=== PATIENT | female | born 1960 | race Caucasian/White ===

== ENCOUNTER → 2017-07-14 15:12 | Outpatient (CLI) | payer MEDICARE, SELFPAY ==
--- NOTE | 2017-07-14 15:15 | MR_ITS ---
MR lumbar spine wo con, MR 3-d myelogram/MRCP HISTORY: Right sided low back pain, rt leg pain with foot numbness, symptoms x6-8 months. ITS.REASON: LOW BACK PAIN ORDERING PHYSICIAN: Promise Wood PATIENT AGE: 57 years COMPARISON: None TECHNIQUE: Standard multiplanar multiecho sequences are performed without contrast. 3-D MIP and myelographic images are also rendered and reviewed FINDINGS: There is normal alignment. The spinal cord ends at the L1-L2 level. T11-T12 and T12-L1: Mild degenerative disc disease with disc desiccation and endplate irregularity L1-L2: Degenerative disc disease with mild concentric bulging disc. L2-L3: Unremarkable. L3-L4: Mild degenerative disc disease with mild concentric bulging disc along with facet and ligamentum flavum hypertrophic change. 3 mm anterolisthesis of L3. There is borderline narrowing of the canal. There is mild bilateral lateral recess narrowing. L4-L5: Minimal concentric bulging disc with mild facet and ligamentum flavum hypertrophy with mild bilateral foraminal narrowing slightly greater on the left. L5-S1: Minimal bulging disc. IMPRESSION: 1. No disc herniation. 2. Lumbar spondylosis with multilevel degenerative disc disease with bulging disc and facet and ligamentum hypertrophy resulting in borderline canal narrowing at L3-L4 with bilateral lateral recess narrowing at that level along with mild bilateral foraminal narrowing slightly greater on the left at L4-L5. There is 3 mm anterolisthesis of L3 on L4 IMPRESSION:
== END ==
PROVIDERS: Family Provider Nurse Practitioner Family; PCP Nurse Practitioner Family; Visit Provider Nurse Practitioner Family
DX: M54.5 Low back pain (principal); M47.896 Other spondylosis, lumbar region; M51.36 Other intervertebral disc degeneration, lumbar region
CPT/HCPCS: 72148; 76376

== ENCOUNTER → 2018-02-05 10:32 | Outpatient (POV) | payer MEDICARE, SELFPAY ==
[2018-02-05 10:46] VITALS: BP 172/94; PULSE 104; RESP 18; O2SAT 98
--- NOTE | 2018-02-05 12:31 | HMH.PMCON ---
Assessment and Plan (1) Peripheral neuropathy Current visit: Yes Status: Chronic Qualifiers: Peripheral neuropathy type: polyneuropathy, unspecified Qualified Code(s): G62.9 - Polyneuropathy, unspecified Category: Medical Code(s): G62.9 - Polyneuropathy, unspecified (2) Lumbar radiculopathy Current visit: Yes Status: Chronic Category: Medical Code(s): M54.16 - Radiculopathy, lumbar region - Assessment and plan all Dx Assessment and Plan for all problems:: We will start the process to get her a psychological evaluation for neurostimulator. Patient and I discussed what is involved in the trial. Patient would like to proceed. I answered all of the patient's questions. In regards to her wound on her ankle. We will send her to wound care and see if we can have this healed. Patient and I discussed that she will will need to be healed and off antibiotics prior to any trial. Patient is currently not on any blood thinners. I will follow-up with the patient after psychological evaluation. This note was dictated using voice recognition software and may contain errors or omissions HPI - Data of Consult Consult date: 02/05/18 Requesting Physician: Kayla Singleton APRN Primary Care Provider: Promise Wood APRN Family Provider: Promise Wood APRN - Consult Narrative Reason for consult: Back and leg pain History of present illness: Ms. Bob is a 57 year old female presents today for consultation emergency neurostimulator. Patient has a diagnosis of bulging lumbar disc along with low back pain and radiculopathy into the right leg. Patient was seen by Dr. Hansen however it was determined that his weight time was quite extensive. Patient and I had a long discussion about the neurostimulator and I do believe it would be beneficial for her. Patient also has severe peripheral arterial disease in her right leg. Patient has stents placed. At this time she does have a wound on her right leg. Patient and I had a long discussion about the neurostimulator and she is interested in moving forward. Patient and I discussed the trialing and implantation process along with realistic goal setting she rates her pain today a 9 out of 10. Patient states most of her pain is in her low back and she is quite a lot of numbness in her right leg. Patient's failed epidural injections along with facet joint injections. Patient's tried and failed physical therapy she is also tried and failed Flexeril, gabapentin, Lortab, Motrin. Patient states that any activity increases her pain. CC: Kayla Singleton APRN [facility] History I have reviewed the patient's past medical history: Yes Medical History: Denies:: Cancer, Diabetes Mellitus Type 1, Diabetes Mellitus Type 2, MRSA Other Medical History: Reports: Arthritis Other Surgeries: Yes: Hysterectomy-Total Amputation: No Fractures: No - *Social History Smoking Status: Never smoker Alcohol Intake: former Occupational Status: disabled Housing: house Household Members: spouse - Psychiatric History Expresses thoughts of harming self/others: None Suicide Plan Description: No Plan *Family Hx:: Unable to obtain Review of Systems - Review of Systems ROS General: no recent weight change, no fever, no sleep disturbances Respiratory: no cough, no shortness of air, no recurring pulmonary infections Cardiovascular/Peripheral Vascular: No chest pain, No palpitations, no edema, no shortness of breath. Gastrointestinal: no incontinence, normal bowel movements reported Genitourinary: no incontinence Musculoskeletal: Pain, leg pain Psychiatric: normal mood/ affect Neurological: Weakness in right lower extremity, numbness tingling bilateral lower extremities, [denies balance issues] Meds Allergies Allergy/AdvReac Type Severity Reaction Status Date / Time No Known Allergies Allergy Verified 01/23/18 12:22 Objective Vital signs: Pulse Resp BP Pulse Ox
--- NOTE | 2018-02-05 12:35 | P.CONS_ITS ---
Assessment and Plan (1) Peripheral neuropathy Current visit: Yes Status: Chronic Qualifiers: Peripheral neuropathy type: polyneuropathy, unspecified Qualified Code(s): G62.9 - Polyneuropathy, unspecified Category: Medical Code(s): G62.9 - Polyneuropathy, unspecified (2) Lumbar radiculopathy Current visit: Yes Status: Chronic Category: Medical Code(s): M54.16 - Radiculopathy, lumbar region - Assessment and plan all Dx Assessment and Plan for all problems:: We will start the process to get her a psychological evaluation for neurostimulator. Patient and I discussed what is involved in the trial. Patient would like to proceed. I answered all of the patient's questions. In regards to her wound on her ankle. We will send her to wound care and see if we can have this healed. Patient and I discussed that she will will need to be healed and off antibiotics prior to any trial. Patient is currently not on any blood thinners. I will follow-up with the patient after psychological evaluation. This note was dictated using voice recognition software and may contain errors or omissions HPI - Data of Consult Consult date: 02/05/18 Requesting Physician: Kayla Singleton APRN Primary Care Provider: Promise Wood APRN Family Provider: Promise Wood APRN - Consult Narrative Reason for consult: Back and leg pain History of present illness: Ms. Bob is a 57 year old female presents today for consultation emergency neurostimulator. Patient has a diagnosis of bulging lumbar disc along with low back pain and radiculopathy into the right leg. Patient was seen by Dr. Hansen however it was determined that his weight time was quite extensive. Patient and I had a long discussion about the neurostimulator and I do believe it would be beneficial for her. Patient also has severe peripheral arterial disease in her right leg. Patient has stents placed. At this time she does have a wound on her right leg. Patient and I had a long discussion about the neurostimulator and she is interested in moving forward. Patient and I discussed the trialing and implantation process along with realistic goal setting she rates her pain today a 9 out of 10. Patient states most of her pain is in her low back and she is quite a lot of numbness in her right leg. Patient's failed epidural injections along with facet joint injections. Patient's tried and failed physical therapy she is also tried and failed Flexeril, gabapentin, Lortab, Motrin. Patient states that any activity increases her pain. CC: Kayla Singleton APRN [facility] History I have reviewed the patient's past medical history: Yes Medical History: Denies:: Cancer, Diabetes Mellitus Type 1, Diabetes Mellitus Type 2, MRSA Other Medical History: Reports: Arthritis Other Surgeries: Yes: Hysterectomy-Total Amputation: No Fractures: No - *Social History Smoking Status: Never smoker Alcohol Intake: former Occupational Status: disabled Housing: house Household Members: spouse - Psychiatric History Expresses thoughts of harming self/others: None Suicide Plan Description: No Plan *Family Hx:: Unable to obtain Review of Systems - Review of Systems ROS General: no recent weight change, no fever, no sleep disturbances Respiratory: no cough, no shortness of air, no recurring pulmonary infections Cardiovascular/Peripheral Vascular: No chest pain, No palpitations, no edema, no shortness of breath. Gastrointestinal: no incontinence, normal bowel movements reported Genitourinary: no incontinence
== END ==
PROVIDERS: Family Provider Nurse Practitioner Family; PCP Nurse Practitioner Family; Visit Provider Clinical Nurse Specialist Family Health
DX: M54.16 Radiculopathy, lumbar region (principal); G62.9 Polyneuropathy, unspecified
CPT/HCPCS: 99202

== ENCOUNTER → 2018-10-23 10:27 | Outpatient (CLI) | payer MEDICARE, SELFPAY ==
--- NOTE | 2018-10-23 | NVE_ITS ---
Venous Exam Indications: 729.5 Pain in limb. 729.81 Swelling of limb. IMPRESSIONS 1. No evidence of deep or superficial vein thrombosis involving the right lower extremity 2. Fluid collection seen in area of recent surgical procedure in the medial and proximal popliteal region. History: Right lower extremity pain. Swelling of the right lower extremity. Risk factors: Former tobacco use. Labs, prior tests, procedures, and surgery: Arterial bypass (August 2018, RLE). Labs, prior tests, procedures, and surgery: Arterial bypass (August 2018, RLE). Right lower extremity venous duplex evaluation. Doppler flow study including spectral analysis, color and rojas scale imaging. Location: Vascular laboratory. Patient status: Outpatient. Tables: Venous flow and imaging: + +-------+ + Location Overall Flow properties + +-------+ + Right common femoral Patent Normal phasicity; spontaneous; normal augmentation; compressible + +-------+ + Right saphenofemoral junction Patent Compressible + +-------+ + Right profunda femoral Patent Compressible + +-------+ + Right femoral Patent Normal phasicity; spontaneous; normal augmentation; compressible + +-------+ + Right greater saphenous Patent Normal phasicity; spontaneous; normal augmentation; compressible + +-------+ + Right popliteal Patent Normal phasicity; spontaneous; normal augmentation; compressible + +-------+ + Right posterior tibial Patent Compressible + +-------+ + Right peroneal Patent Compressible + +-------+ + Right gastrocnemius Patent Compressible + +-------+ + Right soleal Patent Compressible + +-------+ + (Report amended ) Electronically signed by: Andi Sanders [id number]
== END ==
PROVIDERS: PCP Nurse Practitioner Family; Visit Provider Nurse Practitioner Family
DX: M79.661 Pain in right lower leg (principal)
CPT/HCPCS: 93971

== ENCOUNTER → 2018-11-19 13:02 | Outpatient (POV) | payer MEDICARE, SELFPAY ==
[2018-11-19 13:19] VITALS: BP 178/78; PULSE 109; RESP 18; O2SAT 98; BMI 20.2
--- NOTE | 2018-11-19 13:33 | HMH.PAINSOAP ---
[facility] Pain Management SOAP Note Subjective:: Patient is a 58-year-old female who presents today for discussion in regards to her continued nerve pain in her right leg. Patient was consulted for neurostimulator and was scheduled however she did not come to her stimulator due to surgeries that she had. Today she states she is no longer interested in any kind and neuro stimulation. She is currently on gabapentin and states she is tried Lyrica in the past. I asked her what helps her pain and she states Lortab . Patient would like to be continued on her Lortab from her surgeon. I discussed with her we would not be prescribing any narcotic medications. I encouraged her to return to her primary care and be sent to potentially another medication management. I know she is seeing Dr. Hansen in the past however she was unhappy with her care at that time. Patient and I discussed that I still believe a neurostimulator would be that the best treatment for her however like a stated she is uninterested. She has had multiple injections with no relief. ROS General: no recent weight change, no fever, no sleep disturbances Respiratory: no cough, no shortness of air, no recurring pulmonary infections Cardiovascular/Peripheral Vascular: No chest pain, No palpitations, no edema, no shortness of breath. 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 She is been referred back to her primary care physician. Patient states she would like medication management we do not do that at this facility. Dr. Chacon has reviewed this note and agrees with this plan of care. This note was dictated using voice recognition software and may contain errors or omissions
--- NOTE | 2018-11-19 13:36 | P.CONS_ITS ---
[facility] Pain Management SOAP Note Subjective:: Patient is a 58-year-old female who presents today for discussion in regards to her continued nerve pain in her right leg. Patient was consulted for neurostimulator and was scheduled however she did not come to her stimulator due to surgeries that she had. Today she states she is no longer interested in any kind and neuro stimulation. She is currently on gabapentin and states she is tried Lyrica in the past. I asked her what helps her pain and she states Lortab . Patient would like to be continued on her Lortab from her surgeon. I discussed with her we would not be prescribing any narcotic medications. I encouraged her to return to her primary care and be sent to potentially another medication management. I know she is seeing Dr. Hansen in the past however she was unhappy with her care at that time. Patient and I discussed that I still believe a neurostimulator would be that the best treatment for her however like a stated she is uninterested. She has had multiple injections with no relief. ROS General: no recent weight change, no fever, no sleep disturbances Respiratory: no cough, no shortness of air, no recurring pulmonary infections Cardiovascular/Peripheral Vascular: No chest pain, No palpitations, no edema, no shortness of breath. 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 She is been referred back to her primary care physician. Patient states she would like medication management we do not do that at this facility. Dr. Chacon has reviewed this note and agrees with this plan of care. This note was dictated using voice recognition software and may contain errors or omissions
== END ==
PROVIDERS: PCP Nurse Practitioner Family; Visit Provider Clinical Nurse Specialist Family Health
DX: G62.9 Polyneuropathy, unspecified; M54.16 Radiculopathy, lumbar region
CPT/HCPCS: 99212

== ENCOUNTER → 2018-12-04 18:00 | Outpatient (CLI) | payer MEDICARE, SELFPAY ==
[2018-12-04 18:46] LABS: Basophils # 0.1 K/mm3 (0-0.2); Basophils % 0.9 % (0.1-2.0); Eosinophils # 0.1 K/mm3 (0.0-0.4); Eosinophils % 1.2 % (0.1-12.0); Hematocrit 28.2 % (37.0-47.0); Lymphocytes # 1.2 K/mm3 (0.7-4.5); Lymphocytes % 15.7 % (10-50); Mean Corpuscular HGB Conc 28.1 g/dL (31.8-35.4); Mean Corpuscular Volume 71.4 fl (81-99); Mean Platelet Volume 7.1 fl (7.4-10.4); Monocytes # 0.4 K/mm3 (0.1-1.0); Monocytes % 5.2 % (1.7-9.3); Neutrophils # 5.7 K/mm3 (1.8-7.8); Platelet Count 382 K/mm3 (142-424); Red Blood Count 3.95 M/mm3 (4.20-5.40); Red Cell Distribution Width 16.7 % (11.5-17.5); White Blood Count 7.5 K/mm3 (4.8-10.8)
[2018-12-04 19:21] LABS: Hemoglobin 7.9 g/dL (12.2-16.2)
[2018-12-04 19:26] LABS: Amphetamine/Metha Screen,Urine Negative ng/mL (<1000); Barbiturates Screen,Urine Negative ng/mL (<200); Benzodiazepines Screen,Urine Negative ng/mL (<200); Cannabinoid Screen,Urine Negative ng/mL (<50); Cocaine Screen,Urine Negative ng/mL (<300); Methadone Screen,Urine Negative ng/mL (<300); Opiate Screen,Urine Negative ng/mL (<300); Phencyclidine Screen,Urine Negative ng/mL (<25)
[2018-12-04 21:28] LABS: Alanine Aminotransferase 17 U/L (12-78); Albumin/Globulin Ratio 1.3 (1.1-1.8); Alkaline Phosphatase 100 U/L (46-116); Anion Gap 17.9 mEq/L (5-15); Aspartate Amino Transferase 11 U/L (15-37); Bilirubin,Total 0.3 mg/dL (0.2-1.0); Blood Urea Nitrogen 9 mg/dL (7-18); Calcium 9.4 mg/dL (8.5-10.1); Carbon Dioxide 24 mmol/L (21.0-32.0); Chloride 99 mmol/L (98-107); Chol/HDL Ratio 4.1 (1-3.5); Cholesterol 218 mg/dL (140-200); Creatinine,Serum 0.65 mg/dL (0.55-1.02); Estimated Glomerular Filt Rate 93 ml/min (>60); GFR (African American) 113 ML/MIN (>60); Globulin 3.1 gm/dl (1.3-3.2); Glucose 94 mg/dL (74-106); HDL Cholesterol 53 mg/dL (29-89); LDL Cholesterol 138 mg/dL (0-130); Sodium 138 mmol/L (136-145); T4 (Thyroxine) 11.7 ug/dl (4.7-13.3); Thyroid Stimulating Hormone 1.02 uIU/ml (0.358-3.740); Total Protein,Serum 7.1 gm/dL (6.4-8.2); Triglycerides 135 mg/dL (30-200); VLDL Cholesterol 27 mg/dL (0-40)
[2018-12-04 21:39] LABS: Potassium 2.9 mmoL/L (3.5-5.1)
== END ==
PROVIDERS: Visit Provider Emergency Medicine
DX: I10 Essential (primary) hypertension (principal)
CPT/HCPCS: 80053; 80061; 80305; 84436; 84443; 85025

== ENCOUNTER → 2018-12-07 13:58 | Outpatient (CLI) | payer MEDICARE, SELFPAY ==
[2018-12-07 14:39] LABS: Basophils # 0.1 K/mm3 (0-0.2); Basophils % 0.9 % (0.1-2.0); Eosinophils # 0.1 K/mm3 (0.0-0.4); Hematocrit 26.4 % (37.0-47.0); Lymphocytes # 1.7 K/mm3 (0.7-4.5); Lymphocytes % 20.3 % (10-50); Mean Corpuscular HGB Conc 28.2 g/dL (31.8-35.4); Mean Corpuscular Volume 70.8 fl (81-99); Mean Platelet Volume 7.3 fl (7.4-10.4); Monocytes # 0.4 K/mm3 (0.1-1.0); Monocytes % 4.1 % (1.7-9.3); Neutrophils # 6.2 K/mm3 (1.8-7.8); Neutrophils % 73.7 % (37.0-80.0); Platelet Count 400 K/mm3 (142-424); Red Blood Count 3.73 M/mm3 (4.20-5.40); White Blood Count 8.4 K/mm3 (4.8-10.8)
[2018-12-07 14:50] LABS: Hemoglobin 7.4 g/dL (12.2-16.2)
[2018-12-07 15:14] LABS: Anion Gap 17.7 mEq/L (5-15); Blood Urea Nitrogen 10 mg/dL (7-18); Calcium 9.6 mg/dL (8.5-10.1); Carbon Dioxide 21 mmol/L (21.0-32.0); Chloride 101 mmol/L (98-107); Creatinine,Serum 0.66 mg/dL (0.55-1.02); Estimated Glomerular Filt Rate 92 ml/min (>60); GFR (African American) 111 ML/MIN (>60); Glucose 138 mg/dL (74-106); Sodium 137 mmol/L (136-145)
[2018-12-07 15:19] LABS: Potassium 2.7 mmoL/L (3.5-5.1)
[2018-12-07 16:05] LABS: Ferritin 8 ng/mL (8-388)
[2018-12-09 06:44] LABS: Iron 11 ug/dL (27-159); UIBC 490 ug/dL (131-425)
[2018-12-09 17:13] LABS: Iron Saturation 2 % (15-55)
== END ==
PROVIDERS: Visit Provider Emergency Medicine
DX: E87.6 Hypokalemia (principal); I10 Essential (primary) hypertension; D64.9 Anemia, unspecified
CPT/HCPCS: 80048; 82728; 83540; 83550; 85025

== ENCOUNTER 2018-12-10 08:25 | Outpatient (CLI) | payer MEDICARE, SELFPAY ==
[2018-12-10] VITALS (21 sets, daily range): BP systolic 122–165; BP diastolic 54–74; PULSE 73–91; RESP 18–20; TEMP 36.6–36.9; O2SAT 96–98; BMI 20.1
[2018-12-10 08:53] LABS: Hematocrit 25.1 % (37.0-47.0)
[2018-12-10 08:57] LABS: Hemoglobin 7.1 g/dL (12.2-16.2)
--- NOTE | 2018-12-10 15:53 | PC.NURSE ---
12/10/18 1550 Pt resting. Resp easy/regular. Denies c/o. No s/s transfusion reaction noted. Awaiting 1 hour post H&H to be drawn at 1605
[2018-12-10 16:32] LABS: Hematocrit 32.1 % (37.0-47.0); Hemoglobin 9.7 g/dL (12.2-16.2)
== END 2018-12-10 16:05 | disposition home or self-care (01) ==
LOC: INF 08:25
PROVIDERS: Visit Provider Emergency Medicine
DX: D64.9 Anemia, unspecified (principal)
CPT/HCPCS: 36415; 36430; 85014; 85018; 86850; P9016

== ENCOUNTER → 2018-12-17 08:57 | Outpatient (CLI) | payer MEDICARE, SELFPAY ==
--- NOTE | 2018-12-17 08:58 | NM_ITS ---
NM bone 3 phase CLINICAL INDICATION: Right lower extremity pain, history of vascular surgery and recent injury. ITS.REASON: RSD Right LE ORDERING PHYSICIAN: José Burns MD PATIENT AGE: 58 years Comparison: 12/17/2018 DOSE: 26.8 mCi technetium MDP. Three-phase imaging performed FINDINGS: There is decrease activity to the lower right right tib-fib on the blood flow and blood pole images with some slight overall increase activity in the delayed images and lower tib-fib area. Typically complex regional pain syndrome should demonstrate increased activity on all phases however, this could represent a variant of complex regional pain syndrome. IMPRESSION: Abnormal exam showing decrease activity on the blood flow and blood pole images with slight increase activity on the delayed images likely representing a variant of complex regional pain syndrome
--- NOTE | 2018-12-17 11:04 | HMH.ITSHM ---
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 []UMECLIDINIUM RIVAROXABAN HYDROCODONE BUSPIRONE AMLODIPINE ALBUTEROL POTASSIUM MEGESTROL ACETATE ATORVASTATIN
--- NOTE | 2018-12-17 12:39 | XR_ITS ---
XR tibia fibula RT 2V CLINICAL INDICATION: Right leg pain ITS.REASON: RT LOWER LEG PAIN ORDERING PHYSICIAN: José Burns MD PATIENT AGE: 58 years Comparison: None FINDINGS: No bony or joint abnormality. Vascular clips are present proximally and there is some vascular calcification noted distally. IMPRESSION: No acute finding
== END ==
PROVIDERS: PCP Emergency Medicine; Visit Provider Emergency Medicine
DX: G90.50 Complex regional pain syndrome I, unspecified (principal)
CPT/HCPCS: 73590; 78315; A9503

== ENCOUNTER → 2018-12-18 13:26 | Outpatient (CLI) | payer MEDICARE, SELFPAY ==
[2018-12-18 14:23] LABS: Basophils # 0.1 K/mm3 (0-0.2); Basophils % 0.9 % (0.1-2.0); Eosinophils # 0.3 K/mm3 (0.0-0.4); Eosinophils % 2.8 % (0.1-12.0); Hemoglobin 11.2 g/dL (12.2-16.2); Lymphocytes # 1.5 K/mm3 (0.7-4.5); Mean Corpuscular HGB Conc 30.2 g/dL (31.8-35.4); Mean Corpuscular Hemoglobin 23.9 pg (27.0-31.2); Mean Corpuscular Volume 79.3 fl (81-99); Mean Platelet Volume 7.5 fl (7.4-10.4); Monocytes # 0.6 K/mm3 (0.1-1.0); Monocytes % 5.2 % (1.7-9.3); Neutrophils # 8.9 K/mm3 (1.8-7.8); Neutrophils % 78.2 % (37.0-80.0); Platelet Count 443 K/mm3 (142-424); Red Blood Count 4.67 M/mm3 (4.20-5.40); Red Cell Distribution Width 21.4 % (11.5-17.5); White Blood Count 11.4 K/mm3 (4.8-10.8)
[2018-12-18 14:43] LABS: Anion Gap 15.6 mEq/L (5-15); Blood Urea Nitrogen 10 mg/dL (7-18); Calcium 9.6 mg/dL (8.5-10.1); Carbon Dioxide 24 mmol/L (21.0-32.0); Chloride 104 mmol/L (98-107); Creatinine,Serum 0.59 mg/dL (0.55-1.02); Estimated Glomerular Filt Rate 104 ml/min (>60); GFR (African American) 126 ML/MIN (>60); Glucose 95 mg/dL (74-106); Potassium 3.6 mmoL/L (3.5-5.1); Sodium 140 mmol/L (136-145)
[2018-12-18 20:33] LABS: Amphetamine/Metha Screen,Urine Negative ng/mL (<1000); Barbiturates Screen,Urine Negative ng/mL (<200); Benzodiazepines Screen,Urine Negative ng/mL (<200); Cannabinoid Screen,Urine Negative ng/mL (<50); Cocaine Screen,Urine Negative ng/mL (<300); Methadone Screen,Urine Negative ng/mL (<300); Opiate Screen,Urine Positive ng/mL (<300); Phencyclidine Screen,Urine Negative ng/mL (<25)
== END ==
PROVIDERS: Visit Provider Emergency Medicine
DX: D64.9 Anemia, unspecified (principal); E78.5 Hyperlipidemia, unspecified; M54.16 Radiculopathy, lumbar region
CPT/HCPCS: 80048; 80305; 85025

== ENCOUNTER → 2019-01-10 08:37 | Outpatient (CLI) | payer MEDICARE, SELFPAY ==
--- NOTE | 2019-01-10 08:38 | MM_ITS ---
PROCEDURE: MM DIG SCREENING MAMM BI W/CAD Patient Age:58Y CLINICAL INDICATION: screening 58-year-old. Routine screening mammogram. No hormones no new complaints. No prior films available Family history: Maternal aunt breast tumor reportedly age 26 COMPARISON: No exams were available for comparison Patient reports previous mammogram many years ago but does not recall where. TECHNIQUE: Standard CC and MLO images were obtained. R2 CAD reviewed. FINDINGS: Mmoderate breast density, with fibroglandular elements central breast extending mainly towards the towards the upper outer quadrant both breast but. Minimal asymmetry. No dominant nor suspicious mass. No suspicious calcifications. No areas of significant concern. Areas of minor density on one view dissipate on the other and not of significant concern overall. CAD computer review highlights no significant areas of concern either. Bilateral follow-up 1 year recommended IMPRESSION: No areas of significant concern. Bilateral follow-up 1 year recommended and would be be emphasized encouraged to better confirm baseline BI-RAD Category: 2 Benign Finding(s) FOLLOW-UP: 1YR 1 Year Follow-up (A letter has been sent to the patient regarding results of the study.) Dictated by: Uriel Novoa MD 01/11/2019 09:03 Signed by: <Electronically signed by Uriel Novoa MD in [place]> 01/16/2019 10:11
[2019-01-10 12:06] LABS: Ferritin 12 ng/mL (8-388)
[2019-01-11 10:10] LABS: Iron 15 ug/dL (27-159); UIBC 462 ug/dL (131-425)
[2019-01-11 14:22] LABS: Iron Saturation 3 % (15-55)
== END ==
PROVIDERS: PCP Emergency Medicine; Visit Provider Emergency Medicine
DX: Z12.31 Encounter for screening mammogram for malignant neoplasm of breast (principal); D64.9 Anemia, unspecified
CPT/HCPCS: 36415; 77067; 82728; 83540; 83550

== ENCOUNTER → 2019-01-15 13:41 | Outpatient (CLI) | payer MEDICARE, SELFPAY ==
[2019-01-15 16:29] LABS: Amphetamine/Metha Screen,Urine Negative ng/mL (<1000); Barbiturates Screen,Urine Negative ng/mL (<200); Benzodiazepines Screen,Urine Negative ng/mL (<200); Cannabinoid Screen,Urine Negative ng/mL (<50); Cocaine Screen,Urine Negative ng/mL (<300); Methadone Screen,Urine Negative ng/mL (<300); Opiate Screen,Urine Positive ng/mL (<300); Phencyclidine Screen,Urine Negative ng/mL (<25)
== END ==
PROVIDERS: Visit Provider Emergency Medicine
DX: M54.16 Radiculopathy, lumbar region (principal)
CPT/HCPCS: 80305

== ENCOUNTER 2019-01-29 08:43 | Outpatient (CLI) | payer MEDICARE, SELFPAY ==
[2019-01-29 08:43] VITALS: BMI 19.3
[2019-01-29 08:56] VITALS: BP 136/60; PULSE 90; RESP 18; TEMP 36.5; O2SAT 99
[2019-01-29 08:58] LABS: Basophils % 0.4 % (0.1-2.0); Eosinophils # 0.1 K/mm3 (0.0-0.4); Eosinophils % 1.4 % (0.1-12.0); Hematocrit 27.6 % (37.0-47.0); Hemoglobin 8.4 g/dL (12.2-16.2); Lymphocytes # 1.2 K/mm3 (0.7-4.5); Lymphocytes % 12.4 % (10-50); Mean Corpuscular HGB Conc 30.4 g/dL (31.8-35.4); Mean Corpuscular Hemoglobin 22.6 pg (27.0-31.2); Mean Corpuscular Volume 74.3 fl (81-99); Mean Platelet Volume 7.8 fl (7.4-10.4); Monocytes # 0.3 K/mm3 (0.1-1.0); Monocytes % 3.2 % (1.7-9.3); Neutrophils # 8.2 K/mm3 (1.8-7.8); Neutrophils % 82.6 % (37.0-80.0); Platelet Count 430 K/mm3 (142-424); Red Blood Count 3.72 M/mm3 (4.20-5.40); White Blood Count 9.9 K/mm3 (4.8-10.8)
[2019-01-29 09:26] VITALS: BP 129/64; PULSE 89; RESP 18; O2SAT 100
[2019-01-29 09:40] VITALS: BP 131/68; PULSE 87; RESP 18; O2SAT 99
== END 2019-01-29 09:40 | disposition home or self-care (01) ==
LOC: INF 08:43
PROVIDERS: Visit Provider Internal Medicine Medical Oncology
DX: D50.0 Iron deficiency anemia secondary to blood loss (chronic) (principal); T45.4X5A Adverse effect of iron and its compounds, initial encounter
CPT/HCPCS: 85025; 96365; J1439

== ENCOUNTER 2019-02-05 08:46 | Outpatient (CLI) | payer MEDICARE, SELFPAY ==
[2019-02-05 09:14] VITALS: BP 132/60; PULSE 86; RESP 20; TEMP 36.6; O2SAT 100
[2019-02-05 09:44] VITALS: BP 130/69; PULSE 84; RESP 20; O2SAT 99
[2019-02-05 09:55] VITALS: BP 141/67; PULSE 85; RESP 20; O2SAT 99
== END 2019-02-05 09:55 | disposition home health service (06) ==
LOC: INF 08:46
PROVIDERS: Visit Provider Internal Medicine Medical Oncology
DX: D50.9 Iron deficiency anemia, unspecified (principal); T45.4X5A Adverse effect of iron and its compounds, initial encounter
CPT/HCPCS: 96365; J1439

== ENCOUNTER → 2019-02-08 07:43 | Outpatient (CLI) | payer MEDICARE, SELFPAY ==
[2019-02-08 08:15] LABS: Basophils % 0.4 % (0.1-2.0); Eosinophils # 0.2 K/mm3 (0.0-0.4); Eosinophils % 2.2 % (0.1-12.0); Hemoglobin 9.5 g/dL (12.2-16.2); Lymphocytes # 1.1 K/mm3 (0.7-4.5); Lymphocytes % 10.9 % (10-50); Mean Corpuscular HGB Conc 28.8 g/dL (31.8-35.4); Mean Corpuscular Volume 83.5 fl (81-99); Monocytes # 0.4 K/mm3 (0.1-1.0); Monocytes % 3.6 % (1.7-9.3); Neutrophils # 8.4 K/mm3 (1.8-7.8); Neutrophils % 82.9 % (37.0-80.0); Platelet Count 418 K/mm3 (142-424); Red Blood Count 3.95 M/mm3 (4.20-5.40); White Blood Count 10.2 K/mm3 (4.8-10.8)
[2019-02-08 08:29] LABS: Red Cell Distribution Width 27.4 % (11.5-17.5)
== END ==
PROVIDERS: Visit Provider Physician Assistant
DX: K92.1 Melena (principal)
CPT/HCPCS: 36415; 85025

== ENCOUNTER → 2019-02-12 12:22 | Outpatient (CLI) | payer MEDICARE, SELFPAY ==
[2019-02-12 19:49] LABS: Amphetamine/Metha Screen,Urine Negative ng/mL (<1000); Barbiturates Screen,Urine Negative ng/mL (<200); Benzodiazepines Screen,Urine Negative ng/mL (<200); Cannabinoid Screen,Urine Negative ng/mL (<50); Cocaine Screen,Urine Negative ng/mL (<300); Methadone Screen,Urine Negative ng/mL (<300); Opiate Screen,Urine Negative ng/mL (<300); Phencyclidine Screen,Urine Negative ng/mL (<25)
[2019-02-20 11:43] LABS: Opiates Negative ng/mL (Cutoff=100)
== END ==
PROVIDERS: Visit Provider Emergency Medicine
DX: M54.16 Radiculopathy, lumbar region (principal)
CPT/HCPCS: 80305; 80361; G0480

== ENCOUNTER → 2019-02-21 13:26 | Outpatient (CLI) | payer MEDICARE, SELFPAY ==
[2019-02-21 14:19] LABS: Basophils # 0.1 K/mm3 (0-0.2); Basophils % 0.6 % (0.1-2.0); Eosinophils # 0.2 K/mm3 (0.0-0.4); Eosinophils % 2.2 % (0.1-12.0); Hematocrit 37.2 % (37.0-47.0); Hemoglobin 11.2 g/dL (12.2-16.2); Lymphocytes # 1.7 K/mm3 (0.7-4.5); Lymphocytes % 15.6 % (10-50); Mean Corpuscular Hemoglobin 27.6 pg (27.0-31.2); Mean Corpuscular Volume 91.9 fl (81-99); Mean Platelet Volume 7.2 fl (7.4-10.4); Monocytes # 0.5 K/mm3 (0.1-1.0); Monocytes % 4.7 % (1.7-9.3); Neutrophils # 8.2 K/mm3 (1.8-7.8); Platelet Count 366 K/mm3 (142-424); Red Blood Count 4.04 M/mm3 (4.20-5.40); White Blood Count 10.6 K/mm3 (4.8-10.8)
[2019-02-21 14:51] LABS: Red Cell Distribution Width 26.9 % (11.5-17.5)
[2019-02-21 15:08] LABS: Ferritin 364 ng/mL (8-388)
[2019-02-22 05:08] LABS: Iron 53 ug/dL (27-159); UIBC 314 ug/dL (131-425)
[2019-02-22 06:55] LABS: Iron Saturation 14 % (15-55)
== END ==
PROVIDERS: PCP Emergency Medicine; Visit Provider Internal Medicine Medical Oncology
DX: D64.9 Anemia, unspecified (principal)
CPT/HCPCS: 36415; 82728; 83540; 83550; 85025

== ENCOUNTER → 2019-03-15 13:39 | Outpatient (CLI) | payer MEDICARE, SELFPAY ==
[2019-03-15 15:29] LABS: Amphetamine/Metha Screen,Urine Negative ng/mL (<1000); Barbiturates Screen,Urine Negative ng/mL (<200); Benzodiazepines Screen,Urine Negative ng/mL (<200); Cannabinoid Screen,Urine Negative ng/mL (<50); Cocaine Screen,Urine Negative ng/mL (<300); Methadone Screen,Urine Negative ng/mL (<300); Opiate Screen,Urine Positive ng/mL (<300); Phencyclidine Screen,Urine Negative ng/mL (<25)
== END ==
PROVIDERS: Visit Provider Emergency Medicine
DX: M54.16 Radiculopathy, lumbar region (principal)
CPT/HCPCS: 80305

== ENCOUNTER → 2019-05-13 10:54 | Outpatient (CLI) | payer MEDICARE, SELFPAY ==
[2019-05-13 15:46] LABS: INR 1.07 (0.9-1.1); Prothrombin Time 11.1 seconds (9.4-11.8)
== END ==
PROVIDERS: PCP Emergency Medicine; Visit Provider Emergency Medicine
DX: Z51.81 Encounter for therapeutic drug level monitoring (principal); Z79.01 Long term (current) use of anticoagulants
CPT/HCPCS: 85610

== ENCOUNTER 2019-05-31 08:38 | Outpatient (CLI) | payer MEDICARE, SELFPAY ==
[2019-05-31 15:00] LABS: Prothrombin Time 111.7 seconds (9.4-11.8)
[2019-05-31 15:01] LABS: INR 12.09 (0.9-1.1)
[2019-05-31 16:25] VITALS: BP 179/78; PULSE 93; RESP 20; TEMP 36.9; O2SAT 95
== END 2019-05-31 16:50 | disposition home or self-care (01) ==
LOC: LAB.DROPOF 08:41 → INF 16:07
PROVIDERS: PCP Emergency Medicine; Visit Provider Emergency Medicine
DX: Z51.81 Encounter for therapeutic drug level monitoring (principal); Z79.01 Long term (current) use of anticoagulants
CPT/HCPCS: 85610; 96372

== ENCOUNTER → 2019-06-04 11:24 | Outpatient (CLI) | payer MEDICARE, SELFPAY ==
[2019-06-04 14:21] LABS: INR 1.03 (0.9-1.1); Prothrombin Time 10.7 seconds (9.4-11.8)
== END ==
PROVIDERS: Visit Provider Emergency Medicine
DX: R79.1 Abnormal coagulation profile (principal); Z79.01 Long term (current) use of anticoagulants
CPT/HCPCS: 85610

== ENCOUNTER → 2019-06-11 11:32 | Outpatient (CLI) | payer MEDICARE, SELFPAY ==
[2019-06-11 11:48] LABS: Prothrombin Time 44.5 seconds (9.4-11.8)
== END ==
PROVIDERS: Visit Provider Emergency Medicine
DX: Z51.81 Encounter for therapeutic drug level monitoring (principal); Z79.01 Long term (current) use of anticoagulants
CPT/HCPCS: 85610

== ENCOUNTER → 2019-06-18 11:15 | Outpatient (CLI) | payer MEDICARE, SELFPAY ==
[2019-06-18 14:06] LABS: INR 3.91 (0.9-1.1); Prothrombin Time 38.1 seconds (9.4-11.8)
== END ==
PROVIDERS: Visit Provider Emergency Medicine
DX: I73.9 Peripheral vascular disease, unspecified (principal)
CPT/HCPCS: 85610

== ENCOUNTER 2019-07-01 10:47 | Observation (INO) ==
[2019-07-01 11:13] LABS: Microscopic, Urine URINE MICROSCOPIC (MICROSCOPIC)
[2019-07-01 11:15] LABS: Appearance,Urine CLOUDY (Clear); Bilirubin,Urine Negative (Negative); Blood, Urine 1+ (Negative); Color,Urine YELLOW (Yellow); Glucose,Urine (UA) Negative (Negative); Ketones,Urine Negative (Negative); Leukocyte Esterase,Urine 3+ (Negative); Protein,Urine 2+ (Negative); Specific Gravity, Urine 1.015 (1.005-1.030); Urobilinogen,Urine 0.2 EU/dl (0.2)
--- NOTE | 2019-07-01 11:21 | Emergency Department Note ---
ED Disposition Clinical Impression: Right lower quadrant abdominal pain, Atherosclerosis of abdominal aorta Abdominal pain Qualifiers: Abdominal location: right lower quadrant Qualified Code(s): R10.31 - Right lower quadrant pain Urinary tract infection Qualifiers: Urinary tract infection type: acute cystitis Hematuria presence: without hematuria Qualified Code(s): N30.00 - Acute cystitis without hematuria Disposition: Admitted as Observation Condition on Discharge: Fair Instructions: DI for Acute Abdomen Additional Instructions: Patient was admitted to the floor under Dr. Burns. Referrals: José Burns MD [Primary Care Provider] - Time of Disposition: 15:07 - Critical Care Critical Care Time: No Attestation: On 07/01/19, the high probability of a clinically significant, sudden or life threatening deterioration of the following system(s) required my full and direct attention, intervention and personal management. The time I documented below is in addition to time spent performing reported procedures but includes the following listed in this critical care notation. Medical Decision Making - [place] Inquiry Pt receiving controlled substance: No Vital Signs: 07/01/19 10:58 Temperature 98.5 F Temperature Source Oral Pulse Rate [Right Radial] 89 Respiratory Rate 18 Blood Pressure [Right Arm] 129/74 Blood Pressure Mean [Right Arm] 92 02 Sat by Pulse Oximetry 98 Oxygen Delivery Method Room Air - Lab Data Lab results reviewed: Yes: I reviewed the patient's lab results. Lab Results 07/01/19 11:00: Urine Color Yellow, Urine Appearance Cloudy, Urine pH 7.0, Ur Specific [place] 1.015, Urine Protein 2+, Urine Glucose (UA) Negative, Urine Ke tones Negative, Urine Blood 1+, Urine Nitrate Positive, Urine Bilirubin Negative, Urine Urobilinogen 0.2, Ur Leukocyte Esterase 3+ A, Urine RBC 3-5, Urine WBC 20-50, Ur Squamous Epith Cells Occasional, Urine Bacteria 3+ 07/01/19 11:05: WBC 13.1 H, RBC 4.09 L, Hgb 11.4 L, Hct 34.9 L, MCV 85.4, MCH 27.8, MCHC 32.5, RDW 16.2, Plt Count 430 H, MPV 7.8, Neut % (Auto) 88.5 H, Lymph % (Auto) 6.4 L, [place] % (Auto) 3.8, Eos % (Auto) 0.9, Baso % (Auto) 0.5, Neut # (Auto) 11.6 H, Lymph # (Auto) 0.8, [place] # (Auto) 0.5, Eos # (Auto) 0.1, Baso # (Auto) 0.1, Total Counted 100, Neutrophils % (Manual) 86 H, Lymphocytes % (Manual) 8 L, Monocytes % (Manual) 5, Eosinophils % (Manual) 1, Platelet Estimate Slight increase, Hypochromasia 1+ 07/01/19 11:05: PT 31.1 H, INR 3.16 H 07/01/19 11:05: Sodium 141, Potassium 3.5, Chloride 102, Carbon Dioxide 26, Anion Gap 16.5 H, BUN 8, Creatinine 0.70, Estimated Creat Clear 64, Estimated GFR 85, Est GFR ( Amer) 103, Glucose 113 H, Calcium 9.9, Total Bilirubin 0.2, AST 14 L, ALT 16, Alkaline Phosphatase 125 H, Total Protein 8.5 H, Albumin 3.3 L, Globulin 5.2 H, Albumin/Globulin Ratio 0.6 L, Amylase 30, Lipase 58 L 07/01/19 13:43: Lactate 1.3 Result diagrams: 07/01/19 11:05 07/01/19 11:05 Orders (Tests/Meds): ED MEDICATIONS Discontinued Medications Generic Name Dose Route Start Last Admin Trade Name Nilson PRN Reason Stop Dose Admin Sodium Chloride 1,000 mls @ 999 mls/hr 07/01/19 11:15 07/01/19 11:19 Sod Chlor 0.9% 1000ml Bag IV 07/01/19 12:15 999 mls/hr .Q1H1M DESTINY Administration Ertapenem 1 gm/ Sodium 50 mls @ 100 mls/hr 07/01/19 13:39 07/01/19 14:59 Chloride IV 07/01/19 13:40 100 mls/hr ONCE ONE Administration Protocol Sodium Chloride 1,000 mls @ 999 mls/hr 07/01/19 13:45 07/01/19 15:00 Sod Chlor 0.9% 1000ml Bag IV 07/01/19 14:45 999 mls/hr .Q1H1M DESTINY Administration Ketorolac Tromethamine 30 mg 07/01/19 14:27 07/01/19 15:00 Toradol 60mg/2ml Vial IV 07/01/19 14:28 30 mg ONCE ONE Administration Morphine Sulfate 1 mg 07/01/19 14:27 07/01/19 15:00 Morphine 2mg/Ml Syringe IV 07/01/19 14:28 1 mg ONCE ONE Administration Ondansetron HCl 4 mg 07/01/19 11:02 07/01/19 11:19 Zofran 4mg/2ml Vial IV 07/01/19 11:03 4 mg ONCE ONE Administration ORDERS Category Date Time Status CT abdomen pelvis w con Stat Cat Scan 07/01/19 11:02 Taken Blood Culture Stat Micro 07/01/19 14:24 Received Urine Culture Stat Micro 07/01/19 11:00 Received - CT Data CT Scan: Abdomen Time Received: 15:[address] Reviewed: Yes: I discussed the CT results w/the radiologist Findings Narrative: No acute intra-abdominal or pelvic finding. There is chronic atherosclerotic arterial disease. No signs of acute ischemic colitis. No signs of acute ischemia of the mesentery. No signs of acute appendicitis. Patient seems to have significant atherosclerosis. According to the radiologist if there would be any concern then it should be regarding due to the atherosclerotic disease. - Physician Consults Physician Consulted: Dr. Burns Time: 14:00 Reason -: Admission, Pt condition Comment/Response: Discussed with Dr. Burns regarding the patient and he wanted the patient to be admitted for IV antibiotics and IV hydration. He would want the patient to get the CT scan done prior to being transferred to the floor. Abdominal Pain HPI - General Chief Complaint: Abdominal Pain Stated Complaint: right side pain Time Seen by Provider: 07/01/19 11:09 Mode of Arrival: Wheelchair Source of Information: Patient Limitations: No Limitations Description of Symptoms (Recalled from ER Triage Doc. by RN): PT PRESENTS TO ED WITH C/O RIGHT LOWER QUAD ABDOMINAL PAIN AND NAUSEA X 4 DAYS. PT REPORTS HAVING SOME TROUBLE WITH HER BOWELS AND HAVING TO TAKE SOME LAXATIVES FOR RELIEF AT HOME. - History of Present Illness HPI narrative: 59-year-old female presents to the emergency department with chief complaint of having pain in the lower quadrant last 4 days. She states the pain has been getting worse every day. Pain is currently about 10 out of 10 right now. She states the pain is at times sharp and at times dull. Pain is worse with palpation of the area. No history of nausea or vomiting. It also gives history of having constipation and she has tried [id number]-[id number] medications to have bowel movements. She states she had a very few stool output which looked dark black in color. Patient states he has been having episodes of black-colored stool. She had one black-colored stool 2 days ago. She does have history of constipation. Patient has history of blood clots and takes warfarin on a daily basis. 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 The patient and the family is not sure what exactly had happened. She does not know if her appendix was removed. MD complaint: abdominal pain Onset (ago): day(s) (4) Consistency: constant, other (getting worse) Location: RLQ Severity: moderate Severity scale (1-10): 7 Quality: sharp Radiation: RLQ Migration to: no migration Relieving factors: nothing Exacerbating factors: nothing - Related Data Home Medications Medication Instructions Recorded Confirmed amitriptyline 75 mg tablet PO QHS tab 06/03/19 07/01/19 atorvastatin 40 mg tablet PO QHS tab 06/03/19 07/01/19 megestrol 400 mg/10 mL (40 mg/mL) PO DAILY ml 06/03/19 07/01/19 oral suspension metoprolol succinate 50 mg PO 06/03/19 07/01/19 tablet,extended release 24 hr potassium chloride 20 mEq meq PO DAILY tab 06/03/19 07/01/19 tablet,extended release(part/cryst) warfarin 5 mg tablet 5 mg PO .COMPLEX 06/19/19 07/01/19 warfarin 7.5 mg tablet 7.5 mg PO .COMPLEX 06/19/19 07/01/19 Previous Rx's Medication Instructions Recorded umeclidinium 62.5 mcg-vilanterol 1 inh INHALATION Q24H #60 each 03/15/19 25 mcg/actuation powdr for inhalation amlodipine 10 mg tablet 10 mg PO DAILY #90 tab 04/26/19 gabapentin 800 mg tablet 800 mg PO QID #120 tab 04/26/19 hydrocodone 7.5 mg-acetaminophen 1 tab PO QID PRN #120 tab 06/03/19 325 mg tablet albuterol sulfate 90 mcg/actuation See Rx Instructions .ROUTE 06/10/19 aerosol inhaler .COMPLEX #18 g Allergies Allergy/AdvReac Type Severity Reaction Status Date / Time No Known Allergies Allergy Verified 07/01/19 11:02 [facility] History - Hepatitis A Screen Drug use history?: No High risk sexual behaviors?: No History of sexually transmitted infection?: No Currently employed?: No Childcare worker?: No Do you have indoor plumbing?: Yes Do you have electricity?: Yes Attestation statement:: This patient has been screened for Hepatitis A risk factors. I have reviewed the patient's past medical history: Yes Medical History: Reports:: Chronic Obstructive Pulmonary Disease (COPD), Peripheral Artery Disease Denies:: Cancer, Diabetes Mellitus Type 1, Diabetes Mellitus Type 2, MRSA, Seizures Other Medical History: Reports: Arthritis. Denies: Blood Transfusion Reaction Comment: ordered colonoscopy,hx polyps Other Surgeries: Yes: Cardiac Catheterization, Cardiac Surgery, Cholecystectomy, Colonoscopy, Coronary Stent, EGD, Hysterectomy-Total, Open Heart Surgery, Other Amputation: Yes Fractures: No - Social History Smoking Status: Former smoker Tobacco Type: cigarettes # Packs/Day (cigarettes): 1 Alcohol Intake: never Substance Use Type: denies use Occupational Status: disabled Housing: house Household Members: none Family Hx:: Cancer, Heart Attack, Diabetes, Hypertension, Hyperlipidemia ROS Obtained: Yes All systems reviewed & no additional complaints Physical Exam - General General appearance: alert, in no apparent distress, other (thin. Pt looks pale and weak.) - Head Head exam: atraumatic, normocephalic, normal inspection - Eye Eye exam: Present: normal appearance, PERRL, EOMI - ENT ENT exam: Present: normal exam, normal oropharynx, mucous membranes moist, normal external ear exam - Neck Neck exam: Present: normal inspection, full ROM, trachea midline. Absent: meningismus, lymphadenopathy - Chest Chest inspection: Present: normal inspection, symmetric chest wall rise. Absent: tenderness - Respiratory Respiratory exam: Present: normal lung sounds bilaterally. Absent: respiratory distress - Cardiovascular Cardiovascular exam: Present: regular rate, normal rhythm. Absent: JVD - Abdominal Exam Abdominal exam: Present: soft, tenderness (Her on palpation of the epigastric area as well as the right flank and the right lower quadrant. The tenderness is worse at the epigastric and the right flank area. Rebound tenderness negative. Rovsing sign negative.), normal bowel sounds, tenderness at [place]'s Point. Absent: distention, guarding - Extremities Exam Extremities exam: Present: other (Left lower leg normal at baseline status. Right lower extremity is amputated above the knee.) - Back Exam Back exam: Present: normal inspection. Absent: tenderness - Neurological Exam Neurological exam: Present: alert, oriented X3, CN II-XII intact - Psychiatric Psychiatric exam: Present: normal affect, normal mood - Skin Skin exam: Present: warm, dry, intact, normal color
[2019-07-01 11:29] LABS: Basophils # 0.1 K/mm3 (0-0.2); Basophils % 0.5 % (0.1-2.0); Eosinophils # 0.1 K/mm3 (0.0-0.4); Eosinophils % 0.9 % (0.1-12.0); Hematocrit 34.9 % (37.0-47.0); Hemoglobin 11.4 g/dL (12.2-16.2); Lymphocytes # 0.8 K/mm3 (0.7-4.5); Lymphocytes % 6.4 % (10-50); Mean Corpuscular HGB Conc 32.5 g/dL (31.8-35.4); Mean Corpuscular Volume 85.4 fl (81-99); Mean Platelet Volume 7.8 fl (7.4-10.4); Monocytes # 0.5 K/mm3 (0.1-1.0); Monocytes % 3.8 % (1.7-9.3); Neutrophils # 11.6 K/mm3 (1.8-7.8); Neutrophils % 88.5 % (37.0-80.0); Platelet Count 430 K/mm3 (142-424); Red Blood Count 4.09 M/mm3 (4.20-5.40); Red Cell Distribution Width 16.2 % (11.5-17.5); White Blood Count 13.1 K/mm3 (4.8-10.8)
[2019-07-01 11:39] LABS: INR 3.16 (0.9-1.1); Prothrombin Time 31.1 seconds (9.4-11.8)
[2019-07-01 11:41] LABS: Bacteria,Urine 3+ /lpf; Squamous Epithelial Cell,Urine Occasional #/hpf (0-5); WBC,Urine 20-50 #/hpf (0-3)
[2019-07-01 11:41] LABS: Hypochromasia 1+
[2019-07-01 11:51] LABS: Eosinophils % 1 % (0-3); Lymphocytes % 8 % (10-50); Monocytes % 5 % (2-9); Neutrophils % 86 % (42-76); Total Cells Counted 100
[2019-07-01 12:03] LABS: Albumin Level 3.3 g/dL (3.4-5.0); Albumin/Globulin Ratio 0.6 (1.1-1.8); Anion Gap 16.5 mEq/L (5-15); Bilirubin,Total 0.2 mg/dL (0.2-1.0); Calcium 9.9 mg/dL (8.5-10.1); Globulin 5.2 gm/dl (1.3-3.2); Total Protein,Serum 8.5 g/dL (6.4-8.2)
--- NOTE | 2019-07-01 16:20 | Pharmacy Consult Notes ---
[facility] Pharmacy VTE Monitoring - Patient Demographics Admission date: 07/01/19 Report Date: 07/01/19 Time: 16:20 Allergies/Adverse Reactions: Patient Allergies No Known Allergies Allergy (Verified 07/01/19 11:02) Height: 1.55 m Weight: 41.73 kg Patient Problems: Current Active Problems Abdominal pain (Acute) Right lower quadrant abdominal pain (Acute) Atherosclerosis of abdominal aorta (Acute) Urinary tract infection (Acute) - VTE Risk Labs: VTE Related Lab Results Hgb 11.4 g/dL (12.2-16.2) L 07/01/19 11:05 Hct 34.9 % (37.0-47.0) L 07/01/19 11:05 Plt Count 430 K/mm3 (142-424) H 07/01/19 11:05 PT 31.1 seconds (9.4-11.8) H 07/01/19 11:05 INR 3.16 (0.9-1.1) H 07/01/19 11:05 BUN 8 mg/dL (7-18) 07/01/19 11:05 Creatinine 0.70 mg/dL (0.55-1.02) 07/01/19 11:05 Estimated Creat Clear 64 mL/min (50-200) 07/01/19 11:05 Clinical Trial Participant: No - Prophylaxis VTE Prophylaxis Ordered?: Yes Types of VTE Prophylaxis: TEDS Knee High
--- NOTE | 2019-07-01 20:08 | History & Physical Report ---
*Admission Date: 07/01/19 *Chief complaint: abd pain *History of present illness: this pt reports 4 day hx of rt sided abd pain - she was seen in pcp office and sent to ed - pt with dec po intake -pt reported dark stool and is on coumadin - pt with nonspecific ct but abn u/a and was admitted for ivf and abx T PRESENTS TO ED WITH C/O RIGHT LOWER QUAD ABDOMINAL PAIN AND NAUSEA X 4 DAYS. PT REPORTS HAVING SOME TROUBLE WITH HER BOWELS AND HAVING TO TAKE SOME LAXATIVES FOR RELIEF AT HOME. 59-year-old female presents to the emergency department with chief complaint of having pain in the lower quadrant last 4 days. She states the pain has been getting worse every day. Pain is currently about 10 out of 10 right now. She states the pain is at times sharp and at times dull. Pain is worse with palpation of the area. No history of nausea or vomiting. It also gives history of having constipation and she has tried iykf-wka-poygwxa medications to have bowel movements. She states she had a very few stool output which looked dark black in color. Patient states he has been having episodes of black-colored stool. She had one black-colored stool 2 days ago. She does have history of constipation. Patient has history of blood clots and takes warfarin on a daily basis. 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 The patient and the family is not sure what exactly had happened. She does not know if her appendix was removed. [facility] History I have reviewed the patient's past medical history: Yes Medical History: Reports:: Chronic Obstructive Pulmonary Disease (COPD), Hyperlipidemia, Hypertension, Peripheral Artery Disease Denies:: Cancer, Diabetes Mellitus Type 1, Diabetes Mellitus Type 2, MRSA, Seizures *Have you ever received a pneumonia vaccine?: No *Have you received a flu vaccine this season?: Yes Other Medical History: Reports: Arthritis. Denies: Blood Transfusion Reaction Laterality Cases: Left: Other Other Surgeries: Yes: Cardiac Catheterization, Cardiac Surgery, Cholecystectomy, Colonoscopy, Coronary Stent, EGD, Hysterectomy-Total, Open Heart Surgery, Other Amputation: Yes Fractures: No - *Social History Educational Level: Completed GED/General Educational Development Smoking Status: Former smoker Tobacco Type: cigarettes # Packs/Day (cigarettes): 1 Alcohol Intake: never Substance Use Type: denies use *Occupational Status:: disabled Housing: house Household Members: none *Travel in the last 8 weeks: None Family Hx:: Cancer, Coronary Artery Disease, Diabetes, Heart Attack, Hyperlipidemia, Hypertension Review of Systems - Review of Systems Review of systems:: pertinent systems reviewed and negative unless documented below - Constitutional Denies fever(s) - Eyes Denies change in vision - ENT Denies change in voice - *Cardiovascular Denies chest pain at rest - *Respiratory Denies cough - *Gastrointestinal Reports abdominal pain, Reports black, tarry stools, Denies vomiting - *Genitourinary Denies blood in urine - *Musculoskeletal Denies joint pain, Denies joint swelling - Integumentary/Breasts Denies rash - *Neurologic Denies seizure-like activity, Denies headache(s) - Psychiatric Denies behavioral changes, Denies confusion Meds Home Medications Medication Instructions Recorded Confirmed Type amlodipine 10 mg tablet 10 mg PO DAILY #90 tab 04/26/19 07/01/19 Rx gabapentin 800 mg tablet 800 mg PO QID #120 tab 04/26/19 07/01/19 Rx amitriptyline 75 mg tablet 75 mg PO HS tab 06/03/19 07/01/19 History atorvastatin 40 mg tablet 40 mg PO HS tab 06/03/19 07/01/19 History megestrol 400 mg/10 mL (40 mg/mL) 400 mg PO DAILY ml 06/03/19 07/01/19 History oral suspension metoprolol succinate 50 mg 50 mg PO DAILY 06/03/19 07/01/19 History tablet,extended release 24 hr potassium chloride 20 mEq 40 meq PO DAILY tab 06/03/19 07/02/19 History tablet,extended release(part/cryst) warfarin 5 mg tablet 5 mg PO DIRECTED 06/19/19 07/02/19 History warfarin 7.5 mg tablet 7.5 mg PO DIRECTED 06/19/19 07/02/19 History Albuterol Sulfate [Proventil Hfa] 2 puff INHALATION Q4-6H PRN 07/01/19 07/02/19 History Hydrocodone/Acetaminophen [[place] 1 tab PO QIDP PRN 07/02/19 07/02/19 History 7.5-325 Tablet] Umeclidinium Brm/Vilanterol Tr 1 inh PO DAILY 07/02/19 07/02/19 History [Anoro Ellipta] Allergies Allergy/AdvReac Type Severity Reaction Status Date / Time No Known Allergies Allergy Verified 07/01/19 11:02 Exam Vital signs and Labs for Last 24 Hours: Temp Pulse Resp BP Pulse Ox 97.9 F 89 18 177/71 H 99 07/01/19 16:00 07/01/19 17:07 07/01/19 16:00 07/01/19 16:00 07/01/19 16:00 Laboratory Results - last 24 hr 07/01/19 11:00: Urine Color Yellow, Urine Appearance Cloudy, Urine pH 7.0, Ur Specific [place] 1.015, Urine Protein 2+, Urine Glucose (UA) Negative, Urine Ketones Negative, Urine Blood 1+, Urine Nitrate Positive, Urine Bilirubin Negative, Urine Urobilinogen 0.2, Ur Leukocyte Esterase 3+ A, Urine RBC 3-5, Urine WBC 20-50, Ur Squamous Epith Cells Occasional, Urine Bacteria 3+ 07/01/19 11:05: WBC 13.1 H, RBC 4.09 L, Hgb 11.4 L, Hct 34.9 L, MCV 85.4, MCH 27.8, MCHC 32.5, RDW 16.2, Plt Count 430 H, MPV 7.8, Neut % (Auto) 88.5 H, Lymph % (Auto) 6.4 L, [place] % (Auto) 3.8, Eos % (Auto) 0.9, Baso % (Auto) 0.5, Neut # (Auto) 11.6 H, Lymph # (Auto) 0.8, [place] # (Auto) 0.5, Eos # (Auto) 0.1, Baso # (Auto) 0.1, Total Counted 100, Neutrophils % (Manual) 86 H, Lymphocytes % (Manual) 8 L, Monocytes % (Manual) 5, Eosinophils % (Manual) 1, Platelet Estimate Slight increase, Hypochromasia 1+ 07/01/19 11:05: PT 31.1 H, INR 3.16 H 07/01/19 11:05: Sodium 141, Potassium 3.5, Chloride 102, Carbon Dioxide 26, Anion Gap 16.5 H, BUN 8, Creatinine 0.70, Estimated Creat Clear 64, Estimated GFR 85, Est GFR ( Amer) 103, Glucose 113 H, Calcium 9.9, Total Bilirubin 0.2, AST 14 L, ALT 16, Alkaline Phosphatase 125 H, Total Protein 8.5 H, Albumin 3.3 L, Globulin 5.2 H, Albumin/Globulin Ratio 0.6 L, Amylase 30, Lipase 58 L 07/01/19 13:43: Lactate 1.3 07/01/19 17:49: Troponin I < 0.02 I & O for Last 24 hours: Intake & Output 06/29/19 06/30/19 07/01/19 07/02/19 11:59 11:59 11:59 11:59 Intake Total 240 / 240 Balance 240 / 240 Weight 105 lb 92 lb - Constitutional no acute distress - *Routine HEENT Exam Head: Present: normocephalic Eye: Present: EOMI, PERRL ENT: Present: mucous membranes dry - *Routine Neck Exam Absent: JVD - *Routine Respiratory Exam Present: CTA bilaterally - *Routine Cardiovascular Exam Present: RRR, murmur - *Routine Abdominal Exam Present: soft, tenderness Comments: tender rt lower abd - *Routine Extremities Exam Present: amputation. Absent: edema - *Routine Skin Exam Present: intact - *Routine Neurological Exam Present: alert, CN II-XII intact - Routine Psychiatric Exam Present: normal affect Assessment and Plan (1) Abdominal aortic atherosclerosis Current visit: Yes Status: Acute Category: Medical Code(s): I70.0 - Atherosclerosis of aorta (2) E. coli UTI Current visit: Yes Status: Acute Category: Medical Code(s): N39.0 - Urinary tract infection, site not specified; B96.20 - Unspecified Escherichia coli [E. coli] as the cause of diseases classified elsewhere (3) Right lower quadrant abdominal pain Current visit: Yes Status: Acute Category: Medical Code(s): R10.31 - Right lower quadrant pain
[2019-07-02 07:32] LABS: Basophils % 0.1 % (0.1-2.0); Lymphocytes % 9.1 % (10-50); Monocytes # 0.3 K/mm3 (0.1-1.0); Neutrophils # 7.1 K/mm3 (1.8-7.8); White Blood Count 8.2 K/mm3 (4.8-10.8)
[2019-07-02 07:49] LABS: Eosinophils % 0.5 % (0.1-12.0); Hematocrit 27.4 % (37.0-47.0); Lymphocytes # 0.7 K/mm3 (0.7-4.5); Mean Corpuscular HGB Conc 31.1 g/dL (31.8-35.4); Mean Corpuscular Volume 86.1 fl (81-99); Mean Platelet Volume 7.3 fl (7.4-10.4); Monocytes % 4.2 % (1.7-9.3); Platelet Count 395 K/mm3 (142-424); Red Blood Count 3.18 M/mm3 (4.20-5.40)
[2019-07-02 07:57] LABS: Calcium 8.2 mg/dL (8.5-10.1)
[2019-07-02 07:58] LABS: Hemoglobin 8.5 g/dL (12.2-16.2)
[2019-07-02 09:05] LABS: Lymphocytes % 9 % (10-50); Monocytes % 2 % (2-9); Neutrophils % 89 % (42-76); Total Cells Counted 100
[2019-07-02 09:06] LABS: Hypochromasia 1+
--- NOTE | 2019-07-02 09:19 | Progress Note ---
Internal Medicine - PN: Subj *Date: 07/02/19 *Time: 09:16 Interval history: 59-year-old female patient sitting up in bed resting quietly, reports she does feel better 07/01/2019 Abd/Pelvis CT IMPRESSION: No acute findings. Extensive atherosclerotic disease which would raise the question of mesenteric ischemia. Lower extremity ischemia is also not excluded. Nonobstructing bilateral intrarenal stones. Small pericardial effusion. Dictated by: Dr. Ayala Exam Vital signs and Labs for Last 24 Hours: Temp Pulse Resp BP Pulse Ox 98.3 F 83 18 152/64 H 98 07/02/19 08:00 07/02/19 08:00 07/02/19 08:00 07/02/19 08:00 07/02/19 08:00 Laboratory Results - last 24 hr 07/01/19 11:00: Urine Color Yellow, Urine Appearance Cloudy, Urine pH 7.0, Ur Specific [place] 1.015, Urine Protein 2+, Urine Glucose (UA) Negative, Urine Ketones Negative, Urine Blood 1+, Urine Nitrate Positive, Urine Bilirubin Negative, Urine Urobilinogen 0.2, Ur Leukocyte Esterase 3+ A, Urine RBC 3-5, Urine WBC 20-50, Ur Squamous Epith Cells Occasional, Urine Bacteria 3+ 07/01/19 11:05: WBC 13.1 H, RBC 4.09 L, Hgb 11.4 L, Hct 34.9 L, MCV 85.4, MCH 27.8, MCHC 32.5, RDW 16.2, Plt Count 430 H, MPV 7.8, Neut % (Auto) 88.5 H, Lymph % (Auto) 6.4 L, [place] % (Auto) 3.8, Eos % (Auto) 0.9, Baso % (Auto) 0.5, Neut # (Auto) 11.6 H, Lymph # (Auto) 0.8, [place] # (Auto) 0.5, Eos # (Auto) 0.1, Baso # (Auto) 0.1, Total Counted 100, Neutrophils % (Manual) 86 H, Lymphocytes % (Manual) 8 L, Monocytes % (Manual) 5, Eosinophils % (Manual) 1, Platelet Estimate Slight increase, Hypochromasia 1+ 07/01/19 11:05: PT 31.1 H, INR 3.16 H 07/01/19 11:05: Sodium 141, Potassium 3.5, Chloride 102, Carbon Dioxide 26, Anion Gap 16.5 H, BUN 8, Creatinine 0.70, Estimated Creat Clear 64, Estimated GFR 85, Est GFR ( Amer) 103, Glucose 113 H, Calcium 9.9, Total Bilirubin 0.2, AST 14 L, ALT 16, Alkaline Phosphatase 125 H, Total Protein 8.5 H, Albumin 3.3 L, Globulin 5.2 H, Albumin/Globulin Ratio 0.6 L, Amylase 30, Lipase 58 L 07/01/19 13:43: Lactate 1.3 07/01/19 17:49: Troponin I < 0.02 07/02/19 00:15: Troponin I < 0.02 07/02/19 07:18: WBC 8.2 D, RBC 3.18 L, Hgb 8.5 L D, Hct 27.4 L, MCV 86.1, MCH 26.8 L, MCHC 31.1 L, RDW 17.0, Plt Count 395, MPV 7.3 L, Neut % (Auto) 86.0 H, Lymph % (Auto) 9.1 L, [place] % (Auto) 4.2, Eos % (Auto) 0.5, Baso % (Auto) 0.1, Neut # (Auto) 7.1, Lymph # (Auto) 0.7, [place] # (Auto) 0.3, Eos # (Auto) 0.0, Baso # (Auto) 0.0, Total Counted 100, Neutrophils % (Manual) 89 H, Lymphocytes % (Manual) 9 L, Monocytes % (Manual) 2, Platelet Estimate Slight decrease, Hypochromasia 1+ 07/02/19 07:18: Sodium 139, Potassium 3.0 L, Chloride 104, Carbon Dioxide 22, Anion Gap 16.0 H, BUN 4 L D, Creatinine 0.57, Estimated Creat Clear 69, Estimated GFR 108, Est GFR ( Amer) 131 D, Glucose 133 H, Calcium 8.2 L D I & O for Last 24 hours: Intake & Output 06/29/19 06/30/19 07/01/19 07/02/19 23:59 23:59 23:59 23:59 Intake Total 240 / 340 1743 / 1743 Balance 240 / 340 1743 / 1743 Weight 92 lb 91 lb 15.982 oz Microbiology Reports for the Last 24 Hours: Microbiology 07/01/19 11:00 Urine,Clean Catch Urine Culture - Preliminary Gram Negative Rods 07/01/19 14:24 Blood Blood Culture - Preliminary - Constitutional no acute distress - *Routine HEENT Exam Head: Present: normocephalic, atraumatic. Absent: scalp tenderness Eye: Present: EOMI, PERRL, normal accommodation. Absent: periorbital tenderness ENT: Present: mucous membranes dry. Absent: sinus tenderness - *Routine Neck Exam Present: full ROM, trachea midline. Absent: JVD, tracheal deviation - *Routine Respiratory Exam Absent: accessory muscle use - *Routine Cardiovascular Exam Present: RRR, murmur - *Routine Abdominal Exam Present: soft, normoactive bowel sounds - *Routine Extremities Exam Present: full ROM, pulses intact. Absent: cyanosis - Routine Back/Spine/Pelvis Exam Back/Spine: Present: full ROM. Absent: CVA tenderness - *Routine Skin Exam Present: intact. Absent: wounds - *Routine Neurological Exam Present: alert, oriented X3, CN II-XII intact - Routine Psychiatric Exam Present: normal affect. Absent: auditory hallucinations, visual hallucinations Assessment and Plan (1) E. coli UTI Current visit: Yes Status: Acute Category: Medical Code(s): N39.0 - Urinary tract infection, site not specified; B96.20 - Unspecified Escherichia coli [E. coli] as the cause of diseases classified elsewhere (2) Hypertension Current visit: No Status: Acute Category: Medical Code(s): I10 - Essential (primary) hypertension (3) COPD (chronic obstructive pulmonary disease) Current visit: No Status: Acute Category: Medical Code(s): J44.9 - Chronic obstructive pulmonary disease, unspecified (4) Bacteremia due to Escherichia coli Current visit: Yes Status: Acute Category: Medical Code(s): R78.81 - Bacteremia; B96.20 - Unspecified Escherichia coli [E. coli] as the cause of diseases classified elsewhere (5) BMI less than 19,adult Current visit: Yes Status: Acute Category: Medical Code(s): Z68.1 - Body mass index (BMI) 19.9 or less, adult (6) DVT (deep venous thrombosis) Current visit: Yes Status: Chronic Qualifiers: DVT location: lower extremity Chronicity: chronic Category: Medical Code(s): I82.409 - Acute embolism and thrombosis of unspecif ied deep veins of unspecified lower extremity - Assessment and plan all Dx Assessment and Plan for all problems:: Rounded with Dr. Burns, all orders per Dr. Burns 1. We will check INR, if normal will place PICC for extended IV antibiotics 2. We will start back on Coumadin tonight and received dose of Lovenox SQ 3. Out of bed today The patient's infection will respond to the chosen ABx?: Yes Is the patient receiving the right drug, dose, and route?: Yes Could a more targeted ABx be ordered?: No 10
[2019-07-02 09:29] LABS: INR 2.03 (0.9-1.1); Prothrombin Time 20.4 seconds (9.4-11.8)
[2019-07-02 12:18] LABS: INR 1.93 (0.9-1.1); Prothrombin Time 19.5 seconds (9.4-11.8)
[2019-07-03 07:39] LABS: Basophils % 0.3 % (0.1-2.0); Eosinophils # 0.1 K/mm3 (0.0-0.4); Eosinophils % 2.6 % (0.1-12.0); Hematocrit 24.8 % (37.0-47.0); Lymphocytes # 0.7 K/mm3 (0.7-4.5); Lymphocytes % 14.8 % (10-50); Mean Corpuscular HGB Conc 31.3 g/dL (31.8-35.4); Mean Corpuscular Volume 85.7 fl (81-99); Monocytes # 0.2 K/mm3 (0.1-1.0); Monocytes % 4.4 % (1.7-9.3); Neutrophils # 3.8 K/mm3 (1.8-7.8); Neutrophils % 77.9 % (37.0-80.0); Platelet Count 400 K/mm3 (142-424); Red Blood Count 2.89 M/mm3 (4.20-5.40); Red Cell Distribution Width 16.5 % (11.5-17.5); White Blood Count 4.9 K/mm3 (4.8-10.8)
[2019-07-03 07:41] LABS: INR 1.45 (0.9-1.1); Prothrombin Time 14.8 seconds (9.4-11.8)
[2019-07-03 07:43] LABS: Hemoglobin 7.8 g/dL (12.2-16.2)
[2019-07-03 07:47] LABS: Anion Gap 9.8 mEq/L (5-15); Calcium 8.7 mg/dl (8.4-10.2)
--- NOTE | 2019-07-03 10:15 | Progress Note ---
Internal Medicine - PN: Subj *Date: 07/03/19 *Time: 15:20 Interval history: 59 YOF resting quietly in bed, she reports she is feeling better. Exam Vital signs and Labs for Last 24 Hours: Temp Pulse Resp BP Pulse Ox 97.6 F 71 16 157/71 H 97 07/03/19 07:20 07/03/19 07:20 07/03/19 07:20 07/03/19 07:20 07/03/19 07:20 Laboratory Results - last 24 hr 07/02/19 11:59: PT 19.5 H, INR 1.93 H 07/03/19 07:05: WBC 4.9 D, RBC 2.89 L, Hgb 7.8 L*, Hct 24.8 L, MCV 85.7, MCH 26.8 L, MCHC 31.3 L, RDW 16.5, Plt Count 400, MPV 8.0, Neut % (Auto) 77.9, Lymph % (Auto) 14.8, [place] % (Auto) 4.4, Eos % (Auto) 2.6, Baso % (Auto) 0.3, Neut # (Auto) 3.8, Lymph # (Auto) 0.7, [place] # (Auto) 0.2, Eos # (Auto) 0.1, Baso # (Auto) 0.0 07/03/19 07:05: Sodium 141, Potassium 2.8 L*, Chloride 110 H, Carbon Dioxide 24, Anion Gap 9.8, BUN 2 L, Creatinine 0.40 L, Estimated Creat Clear 102, Estimated GFR 163, Est GFR ( Amer) 197 D, Glucose 95, Calcium 8.7 07/03/19 07:05: PT 14.8 H, INR 1.45 H I & O for Last 24 hours: Intake & Output 06/30/19 07/01/19 07/02/19 07/03/19 23:59 23:59 23:59 23:59 Intake Total 240 / 340 3280 / 3520 1600 / 1600 Output Total 225 / 225 150 / 150 Balance 240 / 340 3055 / 3295 1450 / 1450 Weight 92 lb 91 lb 15.982 oz 95 lb 1 oz Microbiology Reports for the Last 24 Hours: Microbiology 07/01/19 13:43 Blood Blood Culture - Preliminary Gram Negative Rods 07/01/19 14:24 Blood Blood Culture - Preliminary Gram Negative Rods 07/01/19 11:00 Urine,Clean Catch Urine Culture - Final Escherichia coli - Constitutional no acute distress - *Routine HEENT Exam Head: Present: normocephalic, atraumatic. Absent: tenderness of temporal artery Eye: Present: EOMI, PERRL, normal accommodation. Absent: periorbital tenderness ENT: Present: mucous membranes moist. Absent: sinus tenderness - *Routine Neck Exam Present: full ROM. Absent: JVD - *Routine Respiratory Exam Present: CTA bilaterally. Absent: accessory muscle use - *Routine Cardiovascular Exam Present: RRR - *Routine Abdominal Exam Present: soft, normoactive bowel sounds. Absent: tenderness, firm - *Routine Extremities Exam Present: full ROM, pulses intact. Absent: calf tenderness - Routine Back/Spine/Pelvis Exam Back/Spine: Present: full ROM. Absent: CVA tenderness - *Routine Skin Exam Present: intact, warm. Absent: erythema - *Routine Neurological Exam Present: alert, oriented X3, CN II-XII intact - Routine Psychiatric Exam Present: normal affect, normal thought process Assessment and Plan (1) Abdominal aortic atherosclerosis Current visit: Yes Status: Acute Category: Medical Code(s): I70.0 - Atherosclerosis of aorta (2) E. coli UTI Current visit: Yes Status: Acute Category: Medical Code(s): N39.0 - Urinary tract infection, site not specified; B96.20 - Unspecified Escherichia coli [E. coli] as the cause of diseases classified elsewhere (3) Right lower quadrant abdominal pain Current visit: Yes Status: Acute Category: Medical Code(s): R10.31 - Right lower quadrant pain (4) Anemia Current visit: Yes Status: Acute Category: Medical Code(s): D64.9 - Anemia, unspecified (5) Anemia, iron deficiency Current visit: Yes Status: Acute Category: Medical Code(s): D50.9 - Iron deficiency anemia, unspecified - Assessment and plan all Dx Assessment and Plan for all problems:: Roundede w/m Dr. Burns, all orders per Dr. Burns 1. Rocephin 2. KCL PO and IV 3. Consult Hem/Oc The patient's infection will respond to the chosen ABx?: Yes Is the patient receiving the right drug, dose, and route?: Yes Could a more targeted ABx be ordered?: No 10
[2019-07-04 05:43] LABS: Basophils % 0.3 % (0.1-2.0); Eosinophils # 0.2 K/mm3 (0.0-0.4); Eosinophils % 2.7 % (0.1-12.0); Hematocrit 25.7 % (37.0-47.0); Lymphocytes % 17.4 % (10-50); Mean Corpuscular HGB Conc 30.9 g/dL (31.8-35.4); Mean Corpuscular Volume 88.7 fl (81-99); Mean Platelet Volume 7.5 fl (7.4-10.4); Monocytes # 0.2 K/mm3 (0.1-1.0); Monocytes % 3.8 % (1.7-9.3); Neutrophils # 4.1 K/mm3 (1.8-7.8); Neutrophils % 75.8 % (37.0-80.0); Platelet Count 477 K/mm3 (142-424); Red Cell Distribution Width 17.2 % (11.5-17.5); White Blood Count 5.4 K/mm3 (4.8-10.8)
[2019-07-04 05:50] LABS: Hemoglobin 7.9 g/dL (12.2-16.2)
[2019-07-04 05:53] LABS: Anion Gap 11.1 mEq/L (5-15); Calcium 9.1 mg/dl (8.4-10.2)
--- NOTE | 2019-07-04 09:06 | Discharge Summary ---
General - General Admission date:: 07/01/19 Discharge date: 07/04/19 HPI HPI: this pt reports 4 day hx of rt sided abd pain - she was seen in pcp office and sent to ed - pt with dec po intake -pt reported dark stool and is on coumadin - pt with nonspecific ct but abn u/a and was admitted for ivf and abx T PRESENTS TO ED WITH C/O RIGHT LOWER QUAD ABDOMINAL PAIN AND NAUSEA X 4 DAYS. PT REPORTS HAVING SOME TROUBLE WITH HER BOWELS AND HAVING TO TAKE SOME LAXATIVES FOR RELIEF AT HOME. 59-year-old female presents to the emergency department with chief complaint of having pain in the lower quadrant last 4 days. She states the pain has been getting worse every day. Pain is currently about 10 out of 10 right now. She states the pain is at times sharp and at times dull. Pain is worse with palpation of the area. No history of nausea or vomiting. It also gives history of having constipation and she has tried [id number] medications to have bowel movements. She states she had a very few stool output which looked dark black in color. Patient states he has been having episodes of black-colored stool. She had one black-colored stool 2 days ago. She does have history of constipation. Patient has history of blood clots and takes warfarin on a daily basis. 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 The patient and the family is not sure what exactly had happened. She does not know if her appendix was removed. Hospital Course Hospital Course: Anemia-2 units of packed red cells UTI-E. coli will continue Rocephin through PICC line by home health Positive blood cultures-E. coli we will continue with IV Rocephin via PEG through home health We will start back on Coumadin-recheck PT and INR on Monday Patient needs to follow-up with Dr. Pierre as scheduled CT scan-see results Chest x-ray-PICC line good placement Laboratory Results - last 48 hr 07/02/19 07/02/19 07/03/19 09:10 11:59 07:05 WBC 4.9 D RBC 2.89 L Hgb 7.8 L* Hct 24.8 L MCV 85.7 MCH 26.8 L MCHC 31.3 L RDW 16.5 Plt Count 400 MPV 8.0 Neut % (Auto) 77.9 Lymph % (Auto) 14.8 [place] % (Auto) 4.4 Eos % (Auto) 2.6 Baso % (Auto) 0.3 Neut # (Auto) 3.8 Lymph # (Auto) 0.7 [place] # (Auto) 0.2 Eos # (Auto) 0.1 Baso # (Auto) 0.0 PT 20.4 H 19.5 H INR 2.03 H 1.93 H Sodium Potassium Chloride Carbon Dioxide Anion Gap BUN Creatinine Estimated Creat Clear Estimated GFR Est GFR ( Amer) Glucose POC Glucose Calcium Antibody Screen Crossmatch ([facility]) 07/03/19 07/03/19 07/03/19 07:05 07:05 10:33 WBC RBC Hgb Hct MCV MCH MCHC RDW Plt Count MPV Neut % (Auto) Lymph % (Auto) [place] % (Auto) Eos % (Auto) Baso % (Auto) Neut # (Auto) Lymph # (Auto) [place] # (Auto) Eos # (Auto) Baso # (Auto) PT 14.8 H INR 1.45 H Sodium 141 Potassium 2.8 L* Chloride 110 H Carbon Dioxide 24 Anion Gap 9.8 BUN 2 L Creatinine 0.40 L Estimated Creat Clear 102 Estimated GFR 163 Est GFR ( Amer) 197 D Glucose 95 POC Glucose 113 H Calcium 8.7 Antibody Screen Crossmatch ([facility]) 07/03/19 07/03/19 07/04/19 15:45 16:27 04:50 WBC 5.4 RBC 2.90 L Hgb 7.9 L* Hct 25.7 L MCV 88.7 MCH 27.4 MCHC 30.9 L RDW 17.2 Plt Count 477 H MPV 7.5 Neut % (Auto) 75.8 Lymph % (Auto) 17.4 [place] % (Auto) 3.8 Eos % (Auto) 2.7 Baso % (Auto) 0.3 Neut # (Auto) 4.1 Lymph # (Auto) 1.0 [place] # (Auto) 0.2 Eos # (Auto) 0.2 Baso # (Auto) 0.0 PT INR Sodium Potassium Chloride Carbon Dioxide Anion Gap BUN Creatinine Estimated Creat Clear Estimated GFR Est GFR ( Amer) Glucose POC Glucose 133 H Calcium Antibody Screen Negative Crossmatch ([facility]) See Detail 07/04/19 04:50 WBC RBC Hgb Hct MCV MCH MCHC RDW Plt Count MPV Neut % (Auto) Lymph % (Auto) [place] % (Auto) Eos % (Auto) Baso % (Auto) Neut # (Auto) Lymph # (Auto) [place] # (Auto) Eos # (Auto) Baso # (Auto) PT INR Sodium 140 Potassium 4.1 D Chloride 110 H Carbon Dioxide 23 Anion Gap 11.1 BUN 8 D Creatinine 0.40 L Estimated Creat Clear 103 Estimated GFR 163 Est GFR ( Amer) 197 Glucose 95 POC Glucose Calcium 9.1 Antibody Screen Crossmatch ([facility]) Objective Vital signs: Temp Pulse Resp BP Pulse Ox 98.3 F 67 18 172/67 H 99 07/04/19 08:00 07/04/19 08:00 07/04/19 08:00 07/04/19 08:00 07/04/19 08:00 no acute distress, thin - *Routine HEENT Exam Head: Present: normocephalic Eye: Present: PERRL ENT: Present: mucous membranes moist - *Routine Neck Exam Present: supple - *Routine Respiratory Exam Present: CTA bilaterally - *Routine Cardiovascular Exam Present: RRR - *Routine Abdominal Exam Present: soft, normoactive bowel sounds. Absent: tenderness - *Routine Extremities Exam Present: normal capillary refill. Absent: cyanosis, clubbing, edema Comments: PICC line in right upper extremity - *Routine Skin Exam Present: warm. Absent: rash - *Routine Neurological Exam Present: alert, oriented X3 - Routine Psychiatric Exam Present: normal affect Results Labs on day of discharge: Labs from last 24 hours 07/04/19 07/04/19 07/03/19 04:50 04:50 16:27 WBC 5.4 RBC 2.90 L Hgb 7.9 L* Hct 25.7 L MCV 88.7 MCH 27.4 MCHC 30.9 L RDW 17.2 Plt Count 477 H MPV 7.5 Neut % (Auto) 75.8 Lymph % (Auto) 17.4 [place] % (Auto) 3.8 Eos % (Auto) 2.7 Baso % (Auto) 0.3 Neut # (Auto) 4.1 Lymph # (Auto) 1.0 [place] # (Auto) 0.2 Eos # (Auto) 0.2 Baso # (Auto) 0.0 Sodium 140 Potassium 4.1 D Chloride 110 H Carbon Dioxide 23 Anion Gap 11.1 BUN 8 D Creatinine 0.40 L Estimated Creat Clear 103 Estimated GFR 163 Est GFR ( Amer) 197 Glucose 95 POC Glucose Calcium 9.1 Blood Type Pending Antibody Screen Negative Crossmatch ([facility]) See Detail 07/03/19 07/03/19 15:45 10:33 WBC RBC Hgb Hct MCV MCH MCHC RDW Plt Count MPV Neut % (Auto) Lymph % (Auto) [place] % (Auto) Eos % (Auto) Baso % (Auto) Neut # (Auto) Lymph # (Auto) [place] # (Auto) Eos # (Auto) Baso # (Auto) Sodium Potassium Chloride Carbon Dioxide Anion Gap BUN Creatinine Estimated Creat Clear Estimated GFR Est GFR ( Amer) Glucose POC Glucose 133 H 113 H Calcium Blood Type Antibody Screen Crossmatch ([facility]) Preliminary micro results at discharge 07/01/19 13:43 Blood Culture - Preliminary Blood Escherichia coli 07/01/19 14:24 Blood Culture - Preliminary Blood Escherichia coli - Additional Comments Rounded with Dr. Burns all orders per Dr. Burns Continue to transfuse blood discharge after 1 hour post H&H Continue IV Rocephin for UTI and positive blood cultures through home health Coumadin to be continue to monitor through home health DS: Diagnosis - Discharge Diagnosis (1) Abdominal aortic atherosclerosis Status: Acute (2) E. coli UTI Status: Acute (3) Right lower quadrant abdominal pain Status: Acute (4) Anemia Status: Acute (5) Anemia, iron deficiency Status: Acute Discharge Plan - Patient Discharge Instructions ACTIVITY: Continue current activity DIET: continue same diet Patient Instructions: DI for Deep Vein Thrombosis, DI for Dehydration -- Adult, DI for Urinary Tract Infection (UTI), Peripherally Inserted Central Catheter, Peripherally Inserted Central Catheter Infections, DI for Bacteremia--Child - Follow up Plan Follow up with: José Burns MD [Primary Care Provider] - 07/09/19 Disposition: Home, Self-Prison Medications: Home Medications Medication Instructions Recorded Confirmed Type amlodipine 10 mg tablet 10 mg PO DAILY #90 tab 04/26/19 07/01/19 Rx gabapentin 800 mg tablet 800 mg PO QID #120 tab 04/26/19 07/01/19 Rx amitriptyline 75 mg tablet 75 mg PO HS tab 06/03/19 07/01/19 History atorvastatin 40 mg tablet 40 mg PO HS tab 06/03/19 07/01/19 History megestrol 400 mg/10 mL (40 mg/mL) 400 mg PO DAILY ml 06/03/19 07/01/19 History oral suspension metoprolol succinate 50 mg 50 mg PO DAILY 06/03/19 07/01/19 History tablet,extended release 24 hr potassium chloride 20 mEq 40 meq PO DAILY tab 06/03/19 07/02/19 History tablet,extended release(part/cryst) warfarin 5 mg tablet 5 mg PO DIRECTED 06/19/19 07/03/19 History warfarin 7.5 mg tablet 7.5 mg PO DIRECTED 06/19/19 07/02/19 History Albuterol Sulfate [Proventil Hfa] 2 puff INHALATION Q4-6H PRN 07/01/19 07/02/19 History Hydrocodone/Acetaminophen [[place] 1 tab PO QIDP PRN 07/02/19 07/02/19 History 7.5-325 Tablet] Umeclidinium Brm/Vilanterol Tr 1 inh PO DAILY 07/02/19 07/02/19 History [Anoro Ellipta] Ceftriaxone Sodium [Rocephin 2gm 2 gm IV Q24H 5 Days #5 [email or web address] 07/04/19 Rx ADV] Prescriptions/Medication Reconciliation: New Ceftriaxone Sodium [Rocephin 2gm ADV] 2 gm IV Q24H 5 Days #5 vial.port Continued gabapentin 800 mg tablet 800 mg PO QID #120 tab potassium chloride 20 mEq tablet,extended release(part/cryst) 40 meq PO DAILY tab atorvastatin 40 mg tablet 40 mg PO HS tab warfarin 5 mg tablet 5 mg PO DIRECTED warfarin 7.5 mg tablet 7.5 mg PO DIRECTED amlodipine 10 mg tablet 10 mg PO DAILY #90 tab metoprolol succinate 50 mg tablet,extended release 24 hr 50 mg PO DAILY amitriptyline 75 mg tablet 75 mg PO HS tab megestrol 400 mg/10 mL (40 mg/mL) oral suspension 400 mg PO DAILY ml Albuterol Sulfate [Proventil Hfa] 2 puff INHALATION Q4-6H PRN PRN Reason: Shortness Of Breath Umeclidinium Brm/Vilanterol Tr [Anoro Ellipta] 1 inh PO DAILY Hydrocodone/Acetaminophen [[place] 7.5-325 Tablet] 1 tab PO QIDP PRN PRN Reason: pain - Problem Reconciliation Problems Reviewed?: Yes
[2019-07-04 14:18] LABS: Hematocrit 37.1 % (37.0-47.0)
[2019-07-04 14:20] LABS: Hemoglobin 11.6 g/dL (12.2-16.2)
== END 2019-07-04 14:30 | disposition home health service (06) ==
LOC: 2ND 10:47 → ER 10:47 → 2ND 15:45
PROVIDERS: ADMIT Emergency Medicine; ATTEND Emergency Medicine
CPT/HCPCS: 36415; 36569; 71010; 71045; 74177; 80048; 80053; 81001; 82150; 82962; 83605; 83690; 84484; 85007; 85014; 85018; 85025; 85610; 86850; 87040; 87077; 87086; 87088; 87186; 96365; 96366; 96367; 96375; 99284; C1751; G0378; J1335; J2405; P9016

== ENCOUNTER → 2019-07-09 09:40 | Outpatient (CLI) | payer MEDICARE, SELFPAY ==
[2019-07-09 13:32] LABS: INR 3.35 (0.9-1.1); Prothrombin Time 32.9 seconds (9.4-11.8)
== END ==
PROVIDERS: Visit Provider Emergency Medicine
DX: R10.9 Unspecified abdominal pain (principal); I73.9 Peripheral vascular disease, unspecified; Z51.81 Encounter for therapeutic drug level monitoring; Z79.01 Long term (current) use of anticoagulants
CPT/HCPCS: 85610; 87086

== ENCOUNTER → 2019-07-15 10:31 | Outpatient (CLI) | payer MEDICARE, SELFPAY ==
[2019-07-15 13:57] LABS: INR 3.94 (0.9-1.1); Prothrombin Time 38.4 seconds (9.4-11.8)
== END ==
PROVIDERS: Visit Provider Emergency Medicine
DX: Z51.81 Encounter for therapeutic drug level monitoring (principal); Z79.01 Long term (current) use of anticoagulants
CPT/HCPCS: 85610

== ENCOUNTER → 2019-07-23 10:51 | Outpatient (CLI) | payer MEDICARE, SELFPAY ==
[2019-07-23 13:55] LABS: INR 1.59 (0.9-1.1); Prothrombin Time 16.2 seconds (9.4-11.8)
== END ==
PROVIDERS: Visit Provider Emergency Medicine
DX: Z51.81 Encounter for therapeutic drug level monitoring (principal); Z79.01 Long term (current) use of anticoagulants
CPT/HCPCS: 85610

== ENCOUNTER → 2019-07-30 11:51 | Outpatient (CLI) | payer MEDICARE, SELFPAY ==
[2019-07-30 13:57] LABS: INR 2.06 (0.9-1.1); Prothrombin Time 20.7 seconds (9.4-11.8)
== END ==
PROVIDERS: Visit Provider Emergency Medicine
DX: Z51.81 Encounter for therapeutic drug level monitoring (principal); Z79.01 Long term (current) use of anticoagulants
CPT/HCPCS: 85610

== ENCOUNTER 2019-08-27 11:19 | Outpatient (CLI) | payer MEDICARE, SELFPAY ==
[2019-08-27 14:27] LABS: PHA INR Fingerstick 2.4 (0.9-1.1)
== END 2019-08-27 14:33 | disposition home or self-care (01) ==
LOC: ACC 11:22
PROVIDERS: PCP Emergency Medicine; Visit Provider Emergency Medicine
DX: Z51.81 Encounter for therapeutic drug level monitoring (principal); Z79.01 Long term (current) use of anticoagulants
CPT/HCPCS: 85610; 99211; G0463

== ENCOUNTER 2019-09-10 10:42 | Outpatient (CLI) | payer MEDICARE, SELFPAY ==
[2019-09-10 15:11] LABS: PHA INR Fingerstick 1.8 (0.9-1.1)
== END 2019-09-10 15:14 | disposition home or self-care (01) ==
LOC: ACC 10:43
PROVIDERS: PCP Emergency Medicine; Visit Provider Emergency Medicine
DX: Z51.81 Encounter for therapeutic drug level monitoring (principal); Z79.01 Long term (current) use of anticoagulants
CPT/HCPCS: 85610; 99211; G0463

== ENCOUNTER 2019-09-27 10:42 | Outpatient (CLI) | payer MEDICARE, SELFPAY ==
[2019-09-27 15:01] LABS: PHA INR Fingerstick 2.2 (0.9-1.1)
== END 2019-09-27 15:03 | disposition home or self-care (01) ==
LOC: ACC 10:44
PROVIDERS: PCP Emergency Medicine; Visit Provider Emergency Medicine
DX: Z51.81 Encounter for therapeutic drug level monitoring (principal); Z79.01 Long term (current) use of anticoagulants
CPT/HCPCS: 85610; 99211; G0463

== ENCOUNTER 2019-10-18 09:06 | Outpatient (CLI) | payer MEDICARE, SELFPAY ==
[2019-10-18 15:23] LABS: PHA INR Fingerstick 3.1 (0.9-1.1)
== END 2019-10-18 15:30 | disposition home or self-care (01) ==
LOC: ACC 09:07
PROVIDERS: PCP Emergency Medicine; Visit Provider Emergency Medicine
DX: Z51.81 Encounter for therapeutic drug level monitoring (principal); Z79.01 Long term (current) use of anticoagulants
CPT/HCPCS: 85610; 99211; G0463

== ENCOUNTER 2019-11-15 09:29 | Outpatient (CLI) | payer MEDICARE, SELFPAY ==
[2019-11-15 11:47] LABS: PHA INR Fingerstick 2.3 (0.9-1.1)
== END 2019-11-15 11:49 | disposition home or self-care (01) ==
LOC: ACC 09:30
PROVIDERS: PCP Emergency Medicine; Visit Provider Emergency Medicine
DX: Z51.81 Encounter for therapeutic drug level monitoring (principal); Z79.01 Long term (current) use of anticoagulants
CPT/HCPCS: 85610; 99211; G0463

== ENCOUNTER 2019-12-13 09:17 | Outpatient (CLI) | payer MEDICARE, SELFPAY ==
[2019-12-13 11:54] LABS: PHA INR Fingerstick 1.4 (0.9-1.1)
== END 2019-12-13 12:07 | disposition home or self-care (01) ==
PROVIDERS: PCP Internal Medicine Adolescent Medicine; Visit Provider Emergency Medicine
DX: Z51.81 Encounter for therapeutic drug level monitoring (principal); Z79.01 Long term (current) use of anticoagulants
CPT/HCPCS: 85610; 99211; G0463

== ENCOUNTER 2020-01-08 08:57 | Outpatient (CLI) | payer MEDICARE, SELFPAY | END 2020-01-08 14:18 | disposition home or self-care (01) | LOC: ACC 08:58 | PROVIDERS: PCP Emergency Medicine; Visit Provider Emergency Medicine | DX: Z51.81 Encounter for therapeutic drug level monitoring (principal); Z79.01 Long term (current) use of anticoagulants | CPT/HCPCS: 85610; 99211; G0463 ==

== ENCOUNTER 2020-02-13 08:27 | Outpatient (CLI) | payer MEDICARE, SELFPAY ==
[2020-02-13 09:55] LABS: PHA INR Fingerstick 2.1 (0.9-1.1)
== END 2020-02-13 09:56 | disposition home or self-care (01) ==
LOC: ACC 08:29
PROVIDERS: PCP Emergency Medicine; Visit Provider Emergency Medicine
DX: Z51.81 Encounter for therapeutic drug level monitoring (principal); Z79.01 Long term (current) use of anticoagulants
CPT/HCPCS: 85610; 99211; G0463

== ENCOUNTER → 2020-03-13 15:14 | Outpatient (CLI) | payer MEDICARE, SELFPAY ==
[2020-03-13 16:40] LABS: Basophils # 0.1 K/mm3 (0-0.2); Basophils % 0.6 % (0.1-2.0); Eosinophils # 0.2 K/mm3 (0.0-0.4); Eosinophils % 2.1 % (0.1-12.0); Hematocrit 39.9 % (37.0-47.0); Hemoglobin 12.9 g/dL (12.2-16.2); Lymphocytes # 1.3 K/mm3 (0.7-4.5); Lymphocytes % 12.9 % (10-50); Mean Corpuscular HGB Conc 32.3 g/dL (31.8-35.4); Mean Corpuscular Hemoglobin 27.8 pg (27.0-31.2); Mean Corpuscular Volume 86.2 fl (81-99); Mean Platelet Volume 9.4 fl (7.4-10.4); Monocytes # 0.5 K/mm3 (0.1-1.0); Monocytes % 4.7 % (1.7-9.3); Neutrophils % 79.7 % (37.0-80.0); Platelet Count 332 K/mm3 (142-424); Red Blood Count 4.63 M/mm3 (4.20-5.40); Red Cell Distribution Width 14.9 % (11.5-17.5)
[2020-03-13 16:47] LABS: Alanine Aminotransferase 18 U/L (12-78); Albumin Level 4.7 g/dl (3.5-5.0); Albumin/Globulin Ratio 1.7 (1.1-1.8); Alkaline Phosphatase 104 U/L (38-126); Anion Gap 16.3 mEq/L (5-15); Aspartate Amino Transferase 33 U/L (14-36); Bilirubin,Total 0.4 mg/dl (0.2-1.3); Blood Urea Nitrogen 10 mg/dl (7-17); Calcium 10.2 mg/dl (8.4-10.2); Carbon Dioxide 23 mmol/L (22.0-30.0); Chloride 106 mmol/L (98-107); Chol/HDL Ratio 3.1 (1-3.5); Cholesterol 250 mg/dl (140-200); Estimated Glomerular Filt Rate 126 ml/min (>60); GFR (African American) 152 ML/MIN (>60); Globulin 2.7 g/dL (1.3-3.2); Glucose 114 mg/dl (74-100); HDL Cholesterol 80 mg/dl (40-60); Potassium 4.3 mmoL/L (3.5-5.1); Sodium 141 mmol/L (136-145); Total Protein,Serum 7.4 g/dl (6.3-8.2); Triglycerides 176 mg/dl (30-150); VLDL Cholesterol 35 mg/dL (0-40)
[2020-03-13 16:58] LABS: Direct LDL Cholesterol 138.99 mg/dL (100-129)
[2020-03-13 17:04] LABS: 25-OH Vitamin D, Total 21.3 ng/mL (30-100); Free T4 (Free Thyroxine) 1.27 ng/dl (0.78-2.19)
[2020-03-13 17:19] LABS: Thyroid Stimulating Hormone 1.21 uIU/mL (0.465-4.68)
== END ==
PROVIDERS: Visit Provider Emergency Medicine
DX: D64.9 Anemia, unspecified (principal); I70.0 Atherosclerosis of aorta; E55.9 Vitamin D deficiency, unspecified
CPT/HCPCS: 80053; 80061; 82306; 84439; 84443; 85025

== ENCOUNTER → 2020-03-25 08:51 | Outpatient (CLI) | payer MEDICARE, SELFPAY ==
[2020-03-25 09:55] LABS: INR 2.39 (0.9-1.1); Prothrombin Time 24.3 seconds (9.4-11.8)
== END ==
PROVIDERS: PCP Emergency Medicine; Visit Provider Emergency Medicine
DX: Z51.81 Encounter for therapeutic drug level monitoring (principal); Z79.01 Long term (current) use of anticoagulants
CPT/HCPCS: 36415; 85610

== ENCOUNTER 2020-05-06 08:35 | Outpatient (CLI) | payer MEDICARE, SELFPAY | END 2020-05-06 10:56 | disposition home or self-care (01) | LOC: ACC 08:36 | PROVIDERS: PCP Emergency Medicine; Visit Provider Emergency Medicine | DX: Z51.81 Encounter for therapeutic drug level monitoring (principal); Z79.01 Long term (current) use of anticoagulants | CPT/HCPCS: 85610; 99211; G0463 ==

== ENCOUNTER 2020-07-07 08:25 | Outpatient (CLI) | payer MEDICARE, SELFPAY | END 2020-07-07 16:43 | disposition home or self-care (01) | LOC: ACC 08:27 | PROVIDERS: PCP Emergency Medicine; Visit Provider Emergency Medicine | DX: Z79.01 Long term (current) use of anticoagulants (principal) | CPT/HCPCS: 85610; 99211; G0463 ==

== ENCOUNTER → 2020-07-07 16:50 | Outpatient (CLI) | payer MEDICARE, SELFPAY ==
[2020-07-08 00:20] LABS: Amphetamine/Metha Screen,Urine Negative ng/ml (<1000)
[2020-07-08 00:21] LABS: Barbiturates Screen,Urine Negative ng/ml (<200); Benzodiazepines Screen,Urine Negative ng/ml (<200)
[2020-07-08 00:22] LABS: Cannabinoid Screen,Urine Negative ng/ml (<50)
[2020-07-08 00:23] LABS: Cocaine Screen,Urine Negative ng/ml (<300); Methadone Screen,Urine Negative ng/ml (<300)
[2020-07-08 00:24] LABS: Opiate Screen,Urine Positive ng/ml (<300); Phencyclidine Screen,Urine Negative ng/ml (<25)
== END ==
PROVIDERS: Visit Provider Emergency Medicine
DX: M54.16 Radiculopathy, lumbar region (principal); Z51.81 Encounter for therapeutic drug level monitoring; Z79.01 Long term (current) use of anticoagulants
CPT/HCPCS: 80305; 85610; 99211; G0463

== ENCOUNTER 2020-08-11 08:54 | Outpatient (CLI) | payer MEDICARE, SELFPAY | END 2020-08-11 10:01 | disposition home or self-care (01) | LOC: ACC 08:56 | PROVIDERS: PCP Emergency Medicine; Visit Provider Emergency Medicine | DX: Z51.81 Encounter for therapeutic drug level monitoring (principal); Z79.01 Long term (current) use of anticoagulants | CPT/HCPCS: 85610; 99211; G0463 ==

== ENCOUNTER → 2020-09-04 10:00 | Outpatient (CLI) | payer MEDICARE, SELFPAY ==
[2020-09-08 11:41] LABS: Occult Blood,Stool Negative (Negative)
== END ==
PROVIDERS: Visit Provider Emergency Medicine
DX: K92.1 Melena (principal)
CPT/HCPCS: 82272; G0328

== ENCOUNTER → 2020-09-04 13:34 | Outpatient (CLI) | payer MEDICARE, SELFPAY ==
[2020-09-04 13:41] LABS: Eosinophils # 0.2 K/mm3 (0.0-0.4); Lymphocytes # 1.2 K/mm3 (0.7-4.5); Mean Corpuscular Volume 73.4 fl (81-99)
[2020-09-04 13:48] LABS: Basophils % 0.5 % (0.1-2.0); Eosinophils % 2.6 % (0.1-12.0); Hematocrit 33.4 % (37.0-47.0); Hemoglobin 9.6 g/dL (12.2-16.2); Lymphocytes % 15.9 % (10-50); Mean Corpuscular HGB Conc 28.8 g/dL (31.8-35.4); Mean Corpuscular Hemoglobin 21.1 pg (27.0-31.2); Mean Platelet Volume 7.5 fl (7.4-10.4); Monocytes # 0.4 K/mm3 (0.1-1.0); Monocytes % 5.1 % (1.7-9.3); Neutrophils # 5.9 K/mm3 (1.8-7.8); Neutrophils % 75.9 % (37.0-80.0); Platelet Count 285 K/mm3 (142-424); Red Blood Count 4.55 M/mm3 (4.20-5.40); Red Cell Distribution Width 17.1 % (11.5-17.5); White Blood Count 7.8 K/mm3 (4.8-10.8)
[2020-09-04 14:02] LABS: Amphetamine/Metha Screen,Urine Negative ng/ml (<1000)
[2020-09-04 14:03] LABS: Barbiturates Screen,Urine Negative ng/ml (<200); Benzodiazepines Screen,Urine Negative ng/ml (<200)
[2020-09-04 14:04] LABS: Cannabinoid Screen,Urine Negative ng/ml (<50); Chloride 104 mmol/L (98-107); Sodium 137 mmol/L (136-145)
[2020-09-04 14:05] LABS: Cocaine Screen,Urine Negative ng/ml (<300); Methadone Screen,Urine Negative ng/ml (<300)
[2020-09-04 14:07] LABS: Blood Urea Nitrogen 6 mg/dl (7-17); Calcium 9.7 mg/dl (8.4-10.2); Carbon Dioxide 23 mmol/L (22.0-30.0); Estimated Glomerular Filt Rate 125 ml/min (>60); GFR (African American) 152 ML/MIN (>60); Glucose 86 mg/dl (74-100); Opiate Screen,Urine Negative ng/ml (<300); Phencyclidine Screen,Urine Negative ng/ml (<25)
== END ==
PROVIDERS: Visit Provider Emergency Medicine
DX: T84.84XA Pain due to internal orthopedic prosthetic devices, implants and grafts, initial encounter (principal); Z96.659 Presence of unspecified artificial knee joint; M54.16 Radiculopathy, lumbar region
CPT/HCPCS: 80048; 80305; 82272; 85025; G0328

== ENCOUNTER → 2020-09-05 10:00 | Outpatient (CLI) | payer MEDICARE, SELFPAY ==
[2020-09-08 11:41] LABS: Occult Blood,Stool Negative (Negative)
== END ==
PROVIDERS: Visit Provider Emergency Medicine
DX: K92.1 Melena (principal)
CPT/HCPCS: 82272; G0328

== ENCOUNTER → 2020-09-06 10:00 | Outpatient (CLI) | payer MEDICARE, SELFPAY ==
[2020-09-08 11:41] LABS: Occult Blood,Stool Negative (Negative)
== END ==
PROVIDERS: Visit Provider Emergency Medicine
DX: K92.1 Melena (principal)
CPT/HCPCS: 82272; G0328

== ENCOUNTER 2020-09-14 08:57 | Outpatient (CLI) | payer MEDICARE, SELFPAY ==
[2020-09-14 13:32] LABS: PHA INR Fingerstick 2.4 (0.9-1.1)
== END 2020-09-14 13:34 | disposition home or self-care (01) ==
LOC: ACC 08:58
PROVIDERS: PCP Emergency Medicine; Visit Provider Emergency Medicine
DX: Z51.81 Encounter for therapeutic drug level monitoring (principal); Z79.01 Long term (current) use of anticoagulants
CPT/HCPCS: 85610; 99211; G0463

== ENCOUNTER → 2020-11-02 13:56 | Outpatient (CLI) | payer MEDICARE, SELFPAY ==
[2020-11-02 17:53] LABS: Amphetamine/Metha Screen,Urine Negative ng/ml (<1000); Methadone Screen,Urine Negative ng/ml (<300)
[2020-11-02 17:54] LABS: Barbiturates Screen,Urine Negative ng/ml (<200); Benzodiazepines Screen,Urine Negative ng/ml (<200)
[2020-11-02 17:55] LABS: Cannabinoid Screen,Urine Negative ng/ml (<50)
[2020-11-02 17:56] LABS: Cocaine Screen,Urine Negative ng/ml (<300); Opiate Screen,Urine Positive ng/ml (<300)
[2020-11-02 17:57] LABS: Phencyclidine Screen,Urine Negative ng/ml (<25)
== END ==
PROVIDERS: Visit Provider Emergency Medicine
DX: M54.16 Radiculopathy, lumbar region (principal); Z79.899 Other long term (current) drug therapy
CPT/HCPCS: 80305

== ENCOUNTER → 2020-11-13 12:43 | Outpatient (CLI) | payer MEDICARE, SELFPAY ==
--- NOTE | 2020-11-13 12:43 | CA_ITS ---
APPROVED REPORT EXAM: Comprehensive 2D, Doppler, and color-flow Echocardiogram Transfer Agent: Jinny Hawkins RVT Ht: 5 ft 0 in Wt: 107lbs BSA: 1.43 BP: 140/60 mmHg Indications: MURMUR,CHF,CABG,COPD,HTN,HLD,PT STATES HAS HAD AORTIC OR AORTIC VALVE SURGERY 2D Dimensions LVOT 2.22 cm (M/F) 1.5-2.5 LA Volume 14.60 mL LA Volume Index 10.20 mL/m2 (M/F) 16-34 M-Mode Dimensions RVDd 2.74 cm (0.9-2.6) LA Diam 3.52 cm (1.9-4.0) LVDd 3.72 cm (3.5-5.7) Ao Diam 2.83 cm (2.0-3.7) LVDs 2.39 cm (3.5-5.7) IVSd 1.10 cm (0.6-1.1) PWd 0.91 cm (0.6-1.1) EF (Teich) 66.00% FS 35.80% EDV (Teich) 58.90 mL TAPSE 1.78 (<1.7) ESV (Teich) 20.00 mL LV Diastology E Decel Time 157.00 (160-240 msec) E/A Ratio 0.9 MED E' 6.00 (< 7 cm/sec) E'/MED E' Ratio 17.55 (>14) LAT E' 8.60 (<10 cm/sec) E/LAT E' Ratio 12.24 (>14) Aortic Valve LVOT Max 122.00 (70-110 cm/s) LVOT VTI 24.86 cm AoV Peak Jens. 152.00 (50-130 cm/s) AO Peak GR. 9.30 mmHg AO Mean GR. 4.80 (<5 mmHg) AO VTI 33.18 (18-25 cm) ALICIA (VTI) 2.90 (2.5-4.5 cm2) Mitral Valve MV E Max Jens. 105.00 (40-130 cm/s) MV A Velocity 119.00 (40-130 cm/s) E/A Ratio 0.89 MV Decel. Time 157.00 (160-240 ms) MV PHT 46.00 ms Pulmonary Valve PV Peak Velocity 92.00 (50-150 cm/s) Tricuspid Valve TR P. Velocity 267.00 cm/s RAP Estimate 10.00 mmHg RVSP 38.50 mmHg Left Ventricle Left atrium is mildly enlarged, left ventricle is normal size, mild concentric left ventricular hypertrophy, visually estimated ejection fraction 55% with no regional wall motion abnormality, grade 1 diastolic dysfunction seen with tissue Doppler evidence of raise left atrial pressure. Right Ventricle Right atrium and right ventricle mildly enlarged with normal contractility. Aortic Valve Aortic valve is minimally thickened and fibrosed, there is no aortic stenosis or aortic insufficiency. Mitral Valve Mitral valve is minimally thickened, there is mild mitral regurgitation. Tricuspid Valve Tricuspid grossly normal, there is mild tricuspid regurgitation, tricuspid regurgitation jet velocity is inadequate for calculation of the right ventricular systolic pressure. Pulmonic Valve Pulmonic valve is poorly visualized. Great Vessels Aortic root is normal size. Pericardium No significant pericardial effusion noted. Conclusion 1. Normal left ventricular size, mild concentric left ventricular hypertrophy, visually estimated ejection fraction 55% with no regional wall motion abnormality, grade 1 diastolic dysfunction seen with tissue Doppler evidence of raise left atrial pressure. 2. Mild mitral and tricuspid regurgitation. 3. No significant pericardial effusion noted. Electronically signed by : Angel Jordan, 11/13/2020 13:39:24
== END ==
PROVIDERS: PCP Emergency Medicine; Visit Provider Emergency Medicine
DX: R01.1 Cardiac murmur, unspecified (principal)
CPT/HCPCS: 93306

== ENCOUNTER → 2020-12-30 13:59 | Outpatient (CLI) | payer MEDICARE, SELFPAY ==
[2020-12-30 14:25] LABS: Alanine Aminotransferase 9 U/L (12-78); Albumin Level 4.1 g/dl (3.5-5.0); Albumin/Globulin Ratio 1.8 (1.1-1.8); Alkaline Phosphatase 80 U/L (38-126); Anion Gap 12.8 mEq/L (5-15); Aspartate Amino Transferase 31 U/L (14-36); Bilirubin,Total 0.4 mg/dl (0.2-1.3); Blood Urea Nitrogen 6 mg/dl (7-17); Calcium 8.8 mg/dl (8.4-10.2); Carbon Dioxide 22 mmol/L (22.0-30.0); Chloride 108 mmol/L (98-107); Estimated Glomerular Filt Rate 162 ml/min (>60); GFR (African American) 196 ML/MIN (>60); Globulin 2.3 g/dL (1.3-3.2); Glucose 105 mg/dl (74-100); Potassium 3.8 mmoL/L (3.5-5.1); Sodium 139 mmol/L (136-145); Total Protein,Serum 6.4 g/dl (6.3-8.2)
[2020-12-30 14:41] LABS: Free T4 (Free Thyroxine) 1.42 ng/dl (0.78-2.19)
[2020-12-30 14:51] LABS: Amphetamine/Metha Screen,Urine Negative ng/ml (<1000)
[2020-12-30 14:52] LABS: Barbiturates Screen,Urine Negative ng/ml (<200)
[2020-12-30 14:53] LABS: Benzodiazepines Screen,Urine Negative ng/ml (<200)
[2020-12-30 14:54] LABS: Basophils % 0.7 % (0.1-2.0); Cannabinoid Screen,Urine Negative ng/ml (<50); Eosinophils % 0.7 % (0.1-12.0); Lymphocytes # 0.8 K/mm3 (0.7-4.5); Lymphocytes % 14.8 % (10-50); Mean Corpuscular HGB Conc 26.2 g/dL (31.8-35.4); Mean Corpuscular Hemoglobin 15.8 pg (27.0-31.2); Mean Corpuscular Volume 60.1 fl (81-99); Mean Platelet Volume 8.2 fl (7.4-10.4); Monocytes # 0.2 K/mm3 (0.1-1.0); Monocytes % 3.5 % (1.7-9.3); Neutrophils # 4.2 K/mm3 (1.8-7.8); Neutrophils % 80.4 % (37.0-80.0); Platelet Count 190 K/mm3 (142-424); Red Blood Count 2.96 M/mm3 (4.20-5.40); Red Cell Distribution Width 18.2 % (11.5-17.5); White Blood Count 5.2 K/mm3 (4.8-10.8)
[2020-12-30 14:55] LABS: Cocaine Screen,Urine Negative ng/ml (<300); Methadone Screen,Urine Negative ng/ml (<300); Thyroid Stimulating Hormone 0.65 uIU/mL (0.465-4.68)
[2020-12-30 14:56] LABS: Opiate Screen,Urine Negative ng/ml (<300)
[2020-12-30 14:57] LABS: Phencyclidine Screen,Urine Negative ng/ml (<25)
[2020-12-30 14:58] LABS: Hematocrit 17.8 % (37.0-47.0)
[2020-12-30 15:02] LABS: Erythrocyte Sedimentation Rate 36 mm/hr (0-30)
[2020-12-30 15:12] LABS: Hemoglobin 4.8 g/dL (12.2-16.2)
[2021-01-01 09:32] LABS: Hep A Ab, IgM Negative (Negative); Hepatitis B Core Antibody IgM Negative (Negative); Hepatitis B Surface Antigen Negative (Negative); Hepatitis C Antibody <0.1 s/co ratio (0.0-0.9)
== END ==
PROVIDERS: Visit Provider Emergency Medicine
DX: M54.16 Radiculopathy, lumbar region (principal); D64.9 Anemia, unspecified; R10.9 Unspecified abdominal pain
CPT/HCPCS: 80053; 80074; 80305; 84439; 84443; 85025; 85651

== ENCOUNTER 2020-12-30 15:59 | Inpatient (IN) | payer MEDICARE, SELFPAY ==
[2020-12-30] VITALS (8 sets, daily range): BP systolic 154–168; BP diastolic 60–76; PULSE 79–92; RESP 16–18; TEMP 36.8–37.4; O2SAT 93–100; BMI 19.1; BMI 19.6
--- NOTE | 2020-12-30 16:18 | HMH.EDGENADL ---
ED Disposition Clinical Impression: GI bleed Disposition: Admitted as Observation Condition on Discharge: Good Referrals: José Burns MD [Primary Care Provider] - - Critical Care Critical Care Time: No Attestation: On , the high probability of a clinically significant, sudden or life threatening deterioration of the following system(s) required my full and direct attention, intervention and personal management. The time I documented below is in addition to time spent performing reported procedures but includes the following listed in this critical care notation. Medical Decision Making - Medical Records Medical records reviewed: Yes: I reviewed the patient's medical records. - [place] Inquiry Pt receiving controlled substance: No Vital Signs: 12/30/20 16:01 12/30/20 16:30 12/30/20 16:48 Temperature 99.3 F Temperature Source Oral Pulse Rate 88 89 Pulse Rate [Right] 92 H Respiratory Rate 16 16 16 Blood Pressure 161/71 H 162/76 H Blood Pressure [Right Arm] 167/60 H Blood Pressure Mean [Right Arm] 95 02 Sat by Pulse Oximetry 97 93 L 99 Oxygen Delivery Method Room Air Room Air - Lab Data Lab Results 12/30/20 16:25: WBC 5.1, RBC 3.11 L, Hgb 5.0 L*, Hct 18.4 L*, MCV 59.3 L, MCH 16.1 L, MCHC 27.1 L, RDW 18.3 H, Plt Count 209, MPV 10.2, Neut % (Auto) 81.8 H, Lymph % (Auto) 13.7, [place] % (Auto) 3.1, Eos % (Auto) 0.8, Baso % (Auto) 0.6, Neut # (Auto) 4.1, Lymph # (Auto) 0.7, [place] # (Auto) 0.2, Eos # (Auto) 0.0, Baso # (Auto) 0.0 12/30/20 16:25: Sodium 139, Potassium 3.7, Chloride 106, Carbon Dioxide 20 L, Anion Gap 16.7 H, BUN 7, Creatinine 0.50 L D, Estimated Creat Clear 41, Estimated GFR 125, Est GFR ( Amer) 152 D, Glucose 107 H, Calcium 9.3, Magnesium 1.8, Total Bilirubin 0.4, AST 24, ALT 12 D, Alkaline Phosphatase 81, Total Protein 7.2, Albumin 4.6 D, Globulin 2.6, Albumin/Globulin Ratio 1.8 12/30/20 16:25: Blood Type A Positive, Crossmatch (AHG) See Detail 12/30/20 16:45: Stool Occult Blood Positive A 12/30/20 16:53: SARS-CoV-2 (PCR) Not detected, Influenza A Untype (PCR) Not detected, Influenza Type B (PCR) Not detected Result diagrams: 12/30/20 16:25 12/30/20 16:25 Orders (Tests/Meds): ED MEDICATIONS Generic Name Dose Route Start Last Admin Trade Name Freq PRN Reason Stop Dose Admin Sodium Chloride 250 mls @ 25 mls/hr 12/30/20 16:15 Sod Chlor 0.9% 250ml Bag IV 12/31/20 16:14 .Q10H DESTINY ORDERS Category Date Time Status Transfuse RBC's [Red Blood Cells] Stat [facility] 12/30/20 16:25 Results Type and Screen Stat [facility] 12/30/20 16:25 Results Medical Decision Narrative: 60-year-old female presents with symptoms of anemia. She is hemodynamically stable at this time. Laboratory evaluation and occult stool ordered as well as blood transfusion. Hemoglobin was 5 in our emergency department. Occult stool was positive brown stool. No abdominal pain on exam. Plan to hold the Xarelto type and cross her for blood and then she will be admitted to Dr. Smiley on-call for Dr. Burns. General Adult HPI - General Chief complaint: Recheck/Abnormal Lab/Rx Stated complaint: labs were low Time Seen by Provider: 12/30/20 16:00 Mode of Arrival: Family Vehicle Limitations: No Limitations Description of Symptoms (Recalled from ER Triage Doc. by RN): Patient reports she had blood work this AM and states, my blood count is low. Patient reports she has a hx of blood transfusion. Patient reports that it was never discovered as to why she needs transfusions. Patient reports she has felt weak for two weeks. - History of Present Illness HPI narrative: 60-year-old female presents with anemia. She was at her routine primary care physician visit with Dr. Burns and she had a hemoglobin that was drawn at 4.8. She has had fatigue and difficulty breathing with exertion. No current chest pain. No nausea vomiting headaches. She does not remember having any bloody stools. She says s
[2020-12-30 16:49] LABS: Basophils % 0.6 % (0.1-2.0); Eosinophils % 0.8 % (0.1-12.0); Lymphocytes # 0.7 K/mm3 (0.7-4.5); Lymphocytes % 13.7 % (10-50); Mean Corpuscular HGB Conc 27.1 g/dL (31.8-35.4); Mean Corpuscular Hemoglobin 16.1 pg (27.0-31.2); Mean Corpuscular Volume 59.3 fl (81-99); Mean Platelet Volume 10.2 fl (7.4-10.4); Monocytes # 0.2 K/mm3 (0.1-1.0); Monocytes % 3.1 % (1.7-9.3); Neutrophils # 4.1 K/mm3 (1.8-7.8); Neutrophils % 81.8 % (37.0-80.0); Platelet Count 209 K/mm3 (142-424); Red Blood Count 3.11 M/mm3 (4.20-5.40); Red Cell Distribution Width 18.3 % (11.5-17.5); White Blood Count 5.1 K/mm3 (4.8-10.8)
[2020-12-30 16:51] LABS: Alanine Aminotransferase 12 U/L (12-78); Albumin Level 4.6 g/dl (3.5-5.0); Albumin/Globulin Ratio 1.8 (1.1-1.8); Alkaline Phosphatase 81 U/L (38-126); Anion Gap 16.7 mEq/L (5-15); Aspartate Amino Transferase 24 U/L (14-36); Bilirubin,Total 0.4 mg/dl (0.2-1.3); Blood Urea Nitrogen 7 mg/dl (7-17); Calcium 9.3 mg/dl (8.4-10.2); Carbon Dioxide 20 mmol/L (22.0-30.0); Chloride 106 mmol/L (98-107); Creatinine Clearance Estimated 41 mL/min (50-200); Estimated Glomerular Filt Rate 125 ml/min (>60); GFR (African American) 152 ML/MIN (>60); Globulin 2.6 g/dL (1.3-3.2); Glucose 107 mg/dl (74-100); Magnesium 1.8 mg/dl (1.6-2.3); Potassium 3.7 mmoL/L (3.5-5.1); Sodium 139 mmol/L (136-145); Total Protein,Serum 7.2 g/dl (6.3-8.2)
--- NOTE | 2020-12-30 16:54 | PC.NURSE ---
notified MORE HASSAN of critical hgb and hct as called per lab
[2020-12-30 16:58] LABS: Hematocrit 18.4 % (37.0-47.0)
[2020-12-30 16:58] LABS: Coronavirus 19, PCR Not Detected (NotDetected); Influenza A, PCR Not Detected (NotDetected); Influenza B, PCR Not Detected (NotDetected)
[2020-12-30 17:00] LABS: Occult Blood,Stool Positive (Negative)
--- NOTE | 2020-12-30 17:08 | PC.NURSE ---
Lab reported patient had an antibody and the [place]
--- NOTE | 2020-12-30 17:09 | PC.NURSE ---
Dr. Mendez paged for consult for admission
--- NOTE | 2020-12-30 17:42 | PC.NURSE ---
DR OLIVAREZ SPEAKING TO DR MA FOR ADMISSION FOR DR MENDEZ
--- NOTE | 2020-12-30 17:47 | PC.NURSE ---
Informed warehouse order selector that patient needed bed for admission
--- NOTE | 2020-12-30 17:52 | PC.NURSE ---
Consent signed for blood transfusion
--- NOTE | 2020-12-30 18:35 | PC.NURSE ---
Report received from Ab AGUERO RN.
--- NOTE | 2020-12-30 18:37 | PC.NURSE ---
Gave report to Naz RUGGIERO at this time
--- NOTE | 2020-12-30 19:12 | PC.NURSE ---
PT ARRIVED TO FLOOR VIA W/C FROM ED W/STAFF AT 1910
[2020-12-31] VITALS (37 sets, daily range): BP systolic 115–179; BP diastolic 48–98; PULSE 66–87; RESP 14–20; TEMP 36.7–37.3; O2SAT 97–100
--- NOTE | 2020-12-31 03:16 | PC.NURSE ---
A&OX4. TOLERATING RA WELL. PT HAS HAD NO C/O PAIN, SOA THUS FAR. PT UP INDEPENDENTLY IN ROOM WITH USE OF PROSTHETIC LEG TO THE RIGHT SIDE. STILL AWAITING PRBC AT THIS TIME. PT ASLEEP MAJORITY OF SHIFT. VSS WILL CONTINUE TO MONITOR.
[2020-12-31 06:27] LABS: Eosinophils # 0.1 K/mm3 (0.0-0.4); Eosinophils % 3.5 % (0.1-12.0); Lymphocytes # 0.8 K/mm3 (0.7-4.5); Lymphocytes % 24.9 % (10-50); Mean Corpuscular Volume 59.4 fl (81-99); Mean Platelet Volume 9.6 fl (7.4-10.4); Monocytes # 0.2 K/mm3 (0.1-1.0); Monocytes % 6.8 % (1.7-9.3); Neutrophils # 2.1 K/mm3 (1.8-7.8); Neutrophils % 63.7 % (37.0-80.0); Platelet Count 189 K/mm3 (142-424); Red Blood Count 2.76 M/mm3 (4.20-5.40); Red Cell Distribution Width 18.1 % (11.5-17.5); White Blood Count 3.2 K/mm3 (4.8-10.8)
[2020-12-31 06:31] LABS: Chloride 111 mmol/L (98-107); Potassium 3.5 mmoL/L (3.5-5.1); Sodium 141 mmol/L (136-145)
[2020-12-31 06:33] LABS: Blood Urea Nitrogen 7 mg/dl (7-17)
[2020-12-31 06:34] LABS: Anion Gap 9.5 mEq/L (5-15); Calcium 8.5 mg/dl (8.4-10.2); Carbon Dioxide 24 mmol/L (22.0-30.0); Cholesterol 121 mg/dl (140-200); Creatinine Clearance Estimated 42 mL/min (50-200); Estimated Glomerular Filt Rate 125 ml/min (>60); GFR (African American) 152 ML/MIN (>60); Glucose 93 mg/dl (74-100); Magnesium 1.9 mg/dl (1.6-2.3); Triglycerides 85 mg/dl (30-150); VLDL Cholesterol 17 mg/dL (0-40)
[2020-12-31 06:35] LABS: Chol/HDL Ratio 3.6 (1-3.5); HDL Cholesterol 34 mg/dl (40-60)
[2020-12-31 06:40] LABS: Hemoglobin 4.4 g/dL (12.2-16.2)
[2020-12-31 06:41] LABS: Hematocrit 16.4 % (37.0-47.0)
[2020-12-31 06:45] LABS: Direct LDL Cholesterol 70.92 mg/dL (100-129)
--- NOTE | 2020-12-31 06:54 | PC.NURSE ---
RECEIVED CRITICAL LABS. HGB 4.4, HCT 16.4. CLARIFIED NAME, AND ROOM NUMBER WITH LAB.
--- NOTE | 2020-12-31 07:33 | P.CONPHA_ITS ---
[facility] Pharm[facility] VTE Monitoring - Patient Demographics Admission date: 12/31/20 Report Date: 12/31/20 Time: 07:33 Allergies/Adverse Reactions: Patient Allergies morphine Allergy (Severe, Verified 12/30/20 11:15) Confusion Height: 1.52 m Weight: 45.36 kg Patient Problems: Current Active Problems GI bleed (Acute) - VTE Risk Labs: VTE Related Lab Results Hgb 4.4 g/dL (12.2-16.2) L* 12/31/20 06:04 Hct 16.4 % (37.0-47.0) L* 12/31/20 06:04 Plt Count 189 K/mm3 (142-424) 12/31/20 06:04 BUN 7 mg/dl (7-17) 12/31/20 06:04 Creatinine 0.50 mg/dl (0.52-1.04) L 12/31/20 06:04 Estimated Creat Clear 42 mL/min (50-200) 12/31/20 06:04 Clinical Trial Participant: No - Prophylaxis VTE Prophylaxis Ordered?: Yes Types of VTE Prophylaxis: TEDS Knee High
--- NOTE | 2020-12-31 08:41 | HMH.PHAINT ---
VERIFIED HOME MEDICAITON LIST USING LIST FROM [facility]
--- NOTE | 2020-12-31 09:15 | HMH.HP ---
*Admission Date: 12/31/20 *Chief complaint: Weakness *History of present illness: 60-year-old female patient presented to the [facility] emergency department after her appointment at primary care office for weakness and fatigue. She does have a history of anemia and scheduled appointment with primary care office for believing her blood count was low. She does have a history of blood transfusions and was occult blood positive in the ED. She also reports shortness of breath with exertion, denies any chest pain, nausea/vomiting/diarrhea or any visible blood in stool. 3 units packed blood cells was ordered, patient did have antibodies and blood was delayed being delivered. General surgery was consulted for possible EGD and/or colonoscopy. [facility] History I have reviewed the patient's past medical history: Yes Medical History: Reports:: Congestive Heart Failure, Chronic Obstructive Pulmonary Disease (COPD), Deep Vein Thrombosis, Hyperlipidemia, Hypertension, Peripheral Artery Disease Denies:: Cancer, Diabetes Mellitus Type 1, Diabetes Mellitus Type 2, MRSA, Seizures *Have you ever received a pneumonia vaccine?: Yes *Have you received a flu vaccine this season?: Yes Other Medical History: Reports: Arthritis, Other. Denies: Blood Transfusion Reaction Laterality Cases: Left: Other Other Surgeries: Yes: Cardiac Catheterization, Cardiac Surgery, Cholecystectomy, Colonoscopy, Coronary Stent, EGD, Hysterectomy-Total, Open Heart Surgery, Other Amputation: Yes Fractures: No - *Social History Smoking Status: Former smoker Tobacco Type: cigarettes # Packs/Day (cigarettes): 1 Alcohol Intake: never Substance Use Type: denies use *Occupational Status:: disabled Housing: house Household Members: none *Travel in the last 8 weeks: None Family Hx:: No significant family history Review of Systems - Review of Systems Review of systems:: pertinent systems reviewed and negative unless documented below - Constitutional Reports fatigue, Reports lack of energy, Reports weakness - Eyes Denies blind spots, Denies double vision - ENT Denies abnormal hearing, Denies dry mouth - *Cardiovascular Reports shortness of breath with activity, Denies chest pain at rest - *Respiratory Reports shortness of breath, Reports shortness of breath with activity, Denies chest congestion - *Gastrointestinal Denies abdominal pain, Denies change in bowel habits, Denies bright, red blood in stools, Denies black, tarry stools - *Musculoskeletal Denies joint pain, Denies joint swelling - Integumentary/Breasts Denies bleeding lesions, Denies yellowing of the skin - *Neurologic Denies dizziness, Denies headache(s), Denies numbness - Psychiatric Denies lack of enjoyment, Denies hearing things others do not hear - Endocrine Denies cold intolerance, Denies heat intolerance - Hematologic/Lymphatic Denies easy bleeding, Denies easy bruising - Allergic/Immunologic Denies GI upset with certain foods, Denies tongue swelling Meds Home Medications Medication Instructions Recorded Confirmed Type metoprolol succinate 50 mg 50 mg PO DAILY #90 tab 11/02/20 12/30/20 Rx tablet,extended release 24 hr Albuterol Sulfate [Albuterol 2 puffs IH Q4-6H PRN 12/30/20 12/31/20 History Sulfate Hfa] Esomeprazole Magnesium 20 mg PO DAILY 12/30/20 12/30/20 History Rivaroxaban [Xarelto] 20 mg PO DAILY 12/30/20 12/31/20 History Umeclidinium Brm/Vilanterol Tr 1 puff IH DAILY 12/30/20 12/31/20 History [Anoro Ellipta] gabapentin 800 mg tablet 800 mg PO QID #120 tab 12/30/20 12/30/20 Rx hydrocodone 7.5 mg-acetaminophen 1 tab PO QID PRN #120 tab 12/30/20 12/30/20 Rx 325 mg tablet Allergies Allergy/AdvReac Type Severity Reaction Status Date / Time morphine Allergy Severe Confusion Verified 12/30/20 11:15 Exam Vital signs and Labs for Last 24 Hours: Temp Pulse Resp BP Pulse Ox 98.4 F 79 16 136/57 L 100 12/31/20 09:05 12/31/20
--- NOTE | 2020-12-31 10:42 | HMH.GSCON ---
*Admission Date: 12/31/20 *Reason for consult:: Anemia; heme-positive stool *History of present illness: This is a 60-year-old female seen in consultation from the service of Drs. Burns and Nidhi for evaluation of anemia and heme positive stool. She presented to the emergency department with concerns for low blood counts and weakness . She states that she has noticed no bright red blood per rectum or melena. Historically, she has noted melena. She has undergone endoscopic evaluation on 2 separate occasions in 2019. Results of her most recent EGD/colonoscopy from February 2019 is forwarded below. Please see HPI from emergency department forwarded below. The following includes data gathered in [address] Mattson: She has a long history of intermittent gastrointestinal hemorrhage and significant anemia. In July 2018 she was evaluated at an outside facility ([place]) where she was diagnosed with gastrointestinal hemorrhage. She reportedly had a heart issue at that time required transfer to [facility] for emergent revascularization and she states that she on the table . She has had problems with peripheral vascular disease as well and is on Xarelto. She reportedly had recurrent vascular stenosis in August of 2018. From prior records evaluation completed by Dr. 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 Also, in July 2018 she underwent upper endoscopy due to reported symptomatic anemia. This revealed Shelbie esophagitis and multiple angiodysplasias within the duodenum with some bleeding which was cauterized and clipped. Patient has been reportedly cleared for surgery but it was recommended she only hold her Xarelto for 3 days. Forwarded from emergency department evaluation: General Adult HPI - General Chief complaint: Recheck/Abnormal Lab/Rx Stated complaint: labs were low Time Seen by Provider: 12/30/20 16:00 Mode of Arrival: Family Vehicle Limitations: No Limitations Description of Symptoms (Recalled from ER Triage Doc. by RN): Patient reports she had blood work this AM and states, my blood count is low. Patient reports she has a hx of blood transfusion. Patient reports that it was never discovered as to why she needs transfusions. Patient reports she has felt weak for two weeks. - History of Present Illness HPI narrative: 60-year-old female presents with anemia. She was at her routine primary care physician visit with Dr. Burns and she had a hemoglobin that was drawn at 4.8. She has had fatigue and difficulty breathing with exertion. No current chest pain. No nausea vomiting headaches. She does not remember having any bloody stools. She says she has history of anemia as well. Onset (ago): week(s) (1) Severity: mild Consistency: intermittent The following is forwarded from Dr. Mattson's EGD/colonoscopy from February 2019: 1. Esophagogastroduodenoscopy with biopsy 2. Total colonoscopy to terminal ileum with polypectomy by snare and biopsy forceps Indications:: Patient is a 58-year-old female from [place] with a history of peripheral neuropathy, reflex sympathetic dystrophy, radiculopathy, hypertension, COPD, severe coronary artery disease, arterial occlusive disease who was originally referred by Dr. Burns for colonoscopy. She has never had a prior colonoscopy. Apparently her father of colon cancer at age 55 however. Patient states that she had actually seen hematology, Dr. Pierre, in the interim and it was re
--- NOTE | 2020-12-31 15:04 | PC.NURSE ---
md changed patient diet to full liquids. patient was found to be eating a big mac from [employer] after education given on being full liquid diet. plan for egd tomorrow. rings out as needed. tolerating units of blood okay. vitals have been stable. independent in room
--- NOTE | 2020-12-31 19:51 | PC.NURSE ---
Patient is resting in bed. Has been alert and oriented, no c/o pain or discomfort. Has remained hemodynamically stable throughout the shift. Patient is on room air. No accucheck, liquid diet. Has ambulated independently to the restroom. Patient has been given a blood transfusion during shift, blood continues to transfuse, patient has tolerated it well with no issues or concerns.
[2021-01-01] VITALS (11 sets, daily range): BP systolic 90–179; BP diastolic 44–78; PULSE 56–64; RESP 14–18; TEMP 36.4–37.1; O2SAT 96–100; BMI 18.7; BMI 18.6
[2021-01-01 03:17] LABS: Hemoglobin 9.4 g/dL (12.2-16.2)
--- NOTE | 2021-01-01 03:29 | PC.NURSE ---
Pt A&O. NO c/o pain this shift. On room air. pt reports feeling much better after receiving blood. IV patent, SL. Pt able to make needs known to staff. VSS, call light in reach, no concerns at this time.
--- NOTE | 2021-01-01 06:35 | PC.NURSE ---
PT OFF FLOOR VIA W/C W/OR STAFF AT [id number]
--- NOTE | 2021-01-01 06:54 | HMH.GSPN ---
Subjective Patient reports: no new complaints Progress Note: A&P (1) Acquired absence of right leg above knee Status: Acute (2) GI bleed Status: Acute Assessment and plan: Excellent response to three unit transfusion. No sign of ongoing hemorrhage. 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, level unspecified, subsequent encounter Status: Acute (4) Anemia, iron deficiency Status: Acute (5) Low hemoglobin and low hematocrit Status: Acute (6) COPD (chronic obstructive pulmonary disease) Status: Chronic Exam Vital signs and Labs for Last 24 Hours: Temp Pulse Resp BP Pulse Ox 98.7 F 63 14 154/77 H 97 01/01/21 04:00 01/01/21 04:00 01/01/21 04:00 01/01/21 04:00 01/01/21 04:00 Laboratory Results - last 24 hr 12/30/20 16:25: Blood Type A Positive, Antibody Screen Negative, Crossmatch (AHG) See Detail 01/01/21 03:00: Hgb 9.4 L D, Hct 30.0 L I & O for Last 24 hours: Intake & Output 12/29/20 12/30/20 12/31/20 01/01/21 11:59 11:59 11:59 11:59 Intake Total 660 / 660 1698 / 1698 Balance 660 / 660 1698 / 1698 Weight 100 lb 0.027 oz 95 lb 9 oz - Constitutional no acute distress - *Routine Respiratory Exam Absent: respiratory distress - *Routine Cardiovascular Exam Absent: tachycardia
--- NOTE | 2021-01-01 07:19 | P.PN_ITS ---
[facility] Anesthesia Checklist - Patient Identification Patient Identification: Arm Band - Structural Data Admitted From: Inpatient Planned Operative Procedure/s: egd Consent for Planned Operative Procedure(s) Verified: Yes Verified Documents: Surgical Consent, History and Physical - NPO Status Verified Time NPO: 00:00 - Additional verifications Anesthesia Reactions: No Hx Blood Transfusions: No Blood Transfusion Reaction: No - Airway Assessment C-Spine Mobility Assessed: Yes (mp2) TMJ Mobility Assessed: Yes Dentition: Poor Dentition - Neurological Assessment Level of Consciousness: Awake, Alert - Anesthesia Plan Anesthesia Risk discussed: Yes Anesthesia Plan: Verified ASA Class: III Anesthesia Type: MAC [facility] History I have reviewed the patient's past medical history: Yes Medical History: Reports:: Congestive Heart Failure, Chronic Obstructive Pulmonary Disease (COPD), Deep Vein Thrombosis, Hyperlipidemia, Hypertension, Peripheral Artery Disease Denies:: Cancer, Diabetes Mellitus Type 1, Diabetes Mellitus Type 2, MRSA, Seizures *Have you ever received a pneumonia vaccine?: Yes *Have you received a flu vaccine this season?: Yes Other Medical History: Reports: Arthritis, Other. Denies: Blood Transfusion Reaction Anesthesia experience/problems:: nac Laterality Cases: Left: Other Other Surgeries: Yes: Cardiac Catheterization, Cardiac Surgery, Cholecystectomy, Colonoscopy, Coronary Stent, EGD, Hysterectomy-Total, Open Heart Surgery, Other Amputation: Yes Fractures: No - *Social History Smoking Status: Former smoker Tobacco Type: cigarettes # Packs/Day (cigarettes): 1 Alcohol Intake: never Substance Use Type: denies use *Occupational Status:: employed Housing: house Household Members: none *Travel in the last 8 weeks: None Family Hx:: No significant family history
--- NOTE | 2021-01-01 07:22 | P.PCN_ITS ---
- Procedure: Date: 01/01/21 Patient Date of :: 1960 Procedure Performed:: Esophagogastroduodenoscopy with biopsy Indications:: Anemia Occult blood in stool Performing Provider:: Boris Taylor MD Referring Provider:: . Sedation:: Monitored anesthesia care Procedure:: After informed consent was obtained the patient was taken to the endoscopy christi te. Sedation ensued after the patient was transferred to the left lateral decubitus position. Pulse, blood pressure, and oxygen saturation were monitored throughout the procedure. The endoscope was advanced beyond the duodenal bulb. Retroflexion within the gastric lumen was accomplished. The gastroscope was carefully removed and the patient was transferred to recovery in stable condition. Please see findings and specimens below for detail. Findings:: Sliding hiatal hernia Mild patchy gastritis Tiny linear ulcer in antrum that appeared completely healed No sign of active or recent hemorrhage Specimens:: Antral biopsy Recommendations:: Proton pump inhibition. Follow-up pathology from antral biopsy. Small bowel follow-through ordered (in preparation for capsule endoscopy in near future). She will require colonoscopy (hopefully in the near future as an outpatient) as she does have a history of colon polyps noted in 2019. Note: Her small bowel may be the current source of hemorrhage (no obvious source noted on EGD and she is only 2 years status post her most recent colonoscopy). Complications:: No immediate Estimated blood obtained (mL): 1
--- NOTE | 2021-01-01 07:31 | FL_ITS ---
PROCEDURE: FL SMALL BOWEL FOLLOW THROUGH CLINICAL INDICATION: anemia / occult blood in stool COMPARISON: No exams were available for comparison FINDINGS: Fluoroscopy time: 63 seconds. Master Technician exam demonstrates diffuse vascular calcification. Right iliac artery stent is present from the internal iliac to the common femoral area No evidence of small-bowel obstruction. No mucosal abnormalities or mass is apparent. IMPRESSION: Unremarkable small bowel follow-through Dictated by: Andi Sanders MD 01/01/2021 12:46 Andi Sanders MD in [place] 01/01/2021 12:46
--- NOTE | 2021-01-01 08:11 | HMH.ITSTN ---
getting scope first floor to call when patient is ready
--- NOTE | 2021-01-01 16:48 | HMH.DCSUM ---
General - General Admission date:: 12/30/20 Discharge date: 01/01/21 HPI HPI: 60-year-old female patient presented to the [facility] emergency department after her appointment at primary care office for weakness and fatigue. She does have a history of anemia and scheduled appointment with primary care office for believing her blood count was low. She does have a history of blood transfusions and was occult blood positive in the ED. She also reports shortness of breath with exertion, denies any chest pain, nausea/vomiting/diarrhea or any visible blood in stool. 3 units packed blood cells was ordered, patient did have antibodies and blood was delayed being delivered. General surgery was consulted for possible EGD and/or colonoscopy. Hospital Course Hospital Course: Laboratory Tests 12/30/20 12/30/20 12/30/20 16:25 16:25 16:25 WBC 5.1 RBC 3.11 L Hgb 5.0 L* Hct 18.4 L* MCV 59.3 L MCH 16.1 L MCHC 27.1 L RDW 18.3 H Plt Count 209 MPV 10.2 Neut % (Auto) 81.8 H Lymph % (Auto) 13.7 [place] % (Auto) 3.1 Eos % (Auto) 0.8 Baso % (Auto) 0.6 Neut # (Auto) 4.1 Lymph # (Auto) 0.7 [place] # (Auto) 0.2 Eos # (Auto) 0.0 Baso # (Auto) 0.0 Sodium 139 Potassium 3.7 Chloride 106 Carbon Dioxide 20 L Anion Gap 16.7 H BUN 7 Creatinine 0.50 L D Estimated Creat Clear 41 Estimated GFR 125 Est GFR ( Amer) 152 D Glucose 107 H Calcium 9.3 Phosphorus Magnesium 1.8 Total Bilirubin 0.4 AST 24 ALT 12 D Alkaline Phosphatase 81 Total Protein 7.2 Albumin 4.6 D Globulin 2.6 Albumin/Globulin Ratio 1.8 Triglycerides Cholesterol LDL Cholesterol Direct VLDL Cholesterol HDL Cholesterol Cholesterol/HDL Ratio Stool Occult Blood SARS-CoV-2 (PCR) Influenza A Untype (PCR) Influenza Type B (PCR) Blood Type A Positive Antibody Screen Negative Crossmatch (AHG) See Detail 12/30/20 12/30/20 12/31/20 16:45 16:53 06:04 WBC 3.2 L D RBC 2.76 L Hgb 4.4 L* Hct 16.4 L* MCV 59.4 L MCH 16.0 L MCHC 27.0 L RDW 18.1 H Plt Count 189 MPV 9.6 Neut % (Auto) 63.7 Lymph % (Auto) 24.9 [place] % (Auto) 6.8 Eos % (Auto) 3.5 Baso % (Auto) 1.0 Neut # (Auto) 2.1 Lymph # (Auto) 0.8 [place] # (Auto) 0.2 Eos # (Auto) 0.1 Baso # (Auto) 0.0 Sodium Potassium Chloride Carbon Dioxide Anion Gap BUN Creatinine Estimated Creat Clear Estimated GFR Est GFR ( Amer) Glucose Calcium Phosphorus Magnesium Total Bilirubin AST ALT Alkaline Phosphatase Total Protein Albumin Globulin Albumin/Globulin Ratio Triglycerides Cholesterol LDL Cholesterol Direct VLDL Cholesterol HDL Cholesterol Cholesterol/HDL Ratio Stool Occult Blood Positive A SARS-CoV-2 (PCR) Not detected Influenza A Untype (PCR) Not detected Influenza Type B (PCR) Not detected Blood Type Antibody Screen Crossmatch ([facility]) 12/31/20 01/01/21 06:04 03:00 WBC RBC Hgb 9.4 L D Hct 30.0 L MCV MCH MCHC RDW Plt Count MPV Neut % (Auto) Lymph % (Auto) [place] % (Auto) Eos % (Auto) Baso % (Auto) Neut # (Auto) Lymph # (Auto) [place] # (Auto) Eos # (Auto) Baso # (Auto) Sodium 141 Potassium 3.5 Chloride 111 H Carbon Dioxide 24 Anion Gap 9.5 BUN 7 Creatinine 0.50 L Estimated Creat Clear 42 Estimated GFR 125 Est GFR ( Amer) 152 Glucose 93 Calcium 8.5 Phosphorus 4.0 Magnesium 1.9 Total Bilirubin AST ALT Alkaline Phosphatase Total Protein Albumin Globulin Albumin/Globulin Ratio Triglycerides 85 Cholesterol 121 L LDL Cholesterol Direct 70.92 L VLDL Cholesterol 17 HDL Cholesterol 34 L Cholesterol/HDL Ratio 3.6 H Stool
== END 2021-01-01 17:15 | disposition home or self-care (01) | DRG 378 ==
LOC: ER 17:44 → 2ND 12-31 07:17
PROVIDERS: Surgery; Admitting Provider Internal Medicine Adolescent Medicine; Emergency Provider Emergency Medicine; PCP Emergency Medicine; Visit Provider Emergency Medicine
PROC: 0DJ08ZZ Inspection of Upper Intestinal Tract, Via Natural or Artificial Opening Endoscopic (ICD-10-PCS; CPT 43235; principal; 2021-01-01 07:00)
DX: K29.71 Gastritis, unspecified, with bleeding (principal); D62 Acute posthemorrhagic anemia; D50.9 Iron deficiency anemia, unspecified; Z20.822 Contact with and (suspected) exposure to COVID-19; I50.9 Heart failure, unspecified; J44.9 Chronic obstructive pulmonary disease, unspecified; Z95.5 Presence of coronary angioplasty implant and graft; Z79.01 Long term (current) use of anticoagulants; Z87.891 Personal history of nicotine dependence; Z86.718 Personal history of other venous thrombosis and embolism; E78.5 Hyperlipidemia, unspecified; E11.51 Type 2 diabetes mellitus with diabetic peripheral angiopathy without gangrene; M19.90 Unspecified osteoarthritis, unspecified site; Z95.1 Presence of aortocoronary bypass graft; Z89.611 Acquired absence of right leg above knee; Z86.010 Personal history of colon polyps; K29.70 Gastritis, unspecified, without bleeding
CPT/HCPCS: 43239; 36415; 74250; 80048; 80053; 80061; 80074; 80305; 82272; 83735; 84100; 84439; 84443; 85014; 85018; 85025; 85651; 86850; 88305; 99284; G0328; P9016; U0003

== ENCOUNTER → 2021-02-24 14:01 | Outpatient (CLI) | payer MEDICARE, SELFPAY ==
[2021-02-24 14:10] LABS: Basophils # 0.1 K/mm3 (0-0.2); Basophils % 0.6 % (0.1-2.0); Eosinophils # 0.1 K/mm3 (0.0-0.4); Eosinophils % 1.1 % (0.1-12.0); Hematocrit 21.1 % (37.0-47.0); Lymphocytes # 1.5 K/mm3 (0.7-4.5); Lymphocytes % 17.4 % (10-50); Mean Corpuscular HGB Conc 30.3 g/dL (31.8-35.4); Mean Corpuscular Hemoglobin 24.8 pg (27.0-31.2); Mean Corpuscular Volume 81.8 fl (81-99); Mean Platelet Volume 9.8 fl (7.4-10.4); Monocytes # 0.4 K/mm3 (0.1-1.0); Monocytes % 4.3 % (1.7-9.3); Neutrophils # 6.5 K/mm3 (1.8-7.8); Neutrophils % 76.7 % (37.0-80.0); Platelet Count 338 K/mm3 (142-424); Red Blood Count 2.58 M/mm3 (4.20-5.40); Red Cell Distribution Width 23.1 % (11.5-17.5); White Blood Count 8.4 K/mm3 (4.8-10.8)
[2021-02-24 15:29] LABS: Hemoglobin 6.4 g/dL (12.2-16.2)
== END ==
PROVIDERS: Visit Provider Emergency Medicine
DX: K92.2 Gastrointestinal hemorrhage, unspecified (principal)
CPT/HCPCS: 85025

== ENCOUNTER 2021-02-25 08:14 | Outpatient (CLI) | payer MEDICARE, SELFPAY ==
[2021-02-25 08:21] VITALS: BMI 18.3
--- NOTE | 2021-02-25 09:05 | PC.NURSE ---
0905-notified per fifi in blood bank that patient has antibodies in her blood and that it will be several hours for blood to arrive from [facility]
--- NOTE | 2021-02-25 14:43 | PC.NURSE ---
0906-updated patient she states she would rather come back tomorrow to get transfusion; pt to return 02/26/21 at 0815 for blood transfusion
== END 2021-02-25 09:20 | disposition home or self-care (01) ==
LOC: INF 08:16
PROVIDERS: PCP Emergency Medicine; Visit Provider Emergency Medicine
DX: D64.9 Anemia, unspecified (principal); Z01.84 Encounter for antibody response examination
CPT/HCPCS: 86850

== ENCOUNTER 2021-02-26 07:46 | Outpatient (CLI) | payer MEDICARE, SELFPAY ==
[2021-02-26] VITALS (27 sets, daily range): BP systolic 114–149; BP diastolic 45–89; PULSE 68–84; RESP 18–20; TEMP 35.5–36.9; O2SAT 84–98; BMI 18.3
[2021-02-26 16:27] LABS: Hemoglobin 11.5 g/dL (12.2-16.2)
== END 2021-02-26 16:40 | disposition home or self-care (01) ==
LOC: INF 07:47
PROVIDERS: PCP Emergency Medicine; Visit Provider Emergency Medicine
DX: D64.9 Anemia, unspecified (principal)
CPT/HCPCS: 36430; 85014; 85018; P9016

== ENCOUNTER → 2021-04-05 11:47 | Outpatient (CLI) | payer MEDICARE, SELFPAY ==
[2021-04-05 14:36] LABS: Occult Blood,Stool Positive (Negative)
== END ==
PROVIDERS: Visit Provider Emergency Medicine
DX: K92.2 Gastrointestinal hemorrhage, unspecified (principal)
CPT/HCPCS: 82272; G0328

== ENCOUNTER → 2021-07-26 16:44 | Outpatient (CLI) | payer MEDICARE, SELFPAY ==
[2021-07-26 14:56] LABS: Basophils # 0.1 K/mm3 (0-0.2); Eosinophils # 0.1 K/mm3 (0.0-0.4); Eosinophils % 1.8 % (0.1-12.0); Hematocrit 33.3 % (37.0-47.0); Hemoglobin 10.1 g/dL (12.2-16.2); Lymphocytes # 0.8 K/mm3 (0.7-4.5); Lymphocytes % 12.5 % (10-50); Mean Corpuscular HGB Conc 30.2 g/dL (31.8-35.4); Mean Corpuscular Hemoglobin 20.8 pg (27.0-31.2); Mean Corpuscular Volume 68.7 fl (81-99); Mean Platelet Volume 8.5 fl (7.4-10.4); Monocytes # 0.3 K/mm3 (0.1-1.0); Monocytes % 4.1 % (1.7-9.3); Neutrophils # 5.1 K/mm3 (1.8-7.8); Neutrophils % 80.5 % (37.0-80.0); Platelet Count 294 K/mm3 (142-424); Red Blood Count 4.85 M/mm3 (4.20-5.40); White Blood Count 6.4 K/mm3 (4.8-10.8)
== END ==
PROVIDERS: Visit Provider Emergency Medicine
DX: D64.9 Anemia, unspecified (principal)
CPT/HCPCS: 85025

== ENCOUNTER → 2021-09-22 16:00 | Outpatient (CLI) | payer MEDICARE, SELFPAY ==
[2021-09-22 14:08] LABS: Alanine Aminotransferase 16 U/L (12-78); Albumin Level 4.5 g/dl (3.5-5.0); Albumin/Globulin Ratio 1.8 (1.1-1.8); Alkaline Phosphatase 94 U/L (38-126); Anion Gap 14.9 mEq/L (5-15); Aspartate Amino Transferase 26 U/L (14-36); Bilirubin,Total 0.4 mg/dl (0.2-1.3); Blood Urea Nitrogen 8 mg/dl (7-17); Carbon Dioxide 22 mmol/L (22.0-30.0); Chloride 106 mmol/L (98-107); Chol/HDL Ratio 3.5 (1-3.5); Cholesterol 208 mg/dl (140-200); Estimated Glomerular Filt Rate 125 ml/min (>60); GFR (African American) 151 ML/MIN (>60); Globulin 2.5 g/dL (1.3-3.2); Glucose 99 mg/dl (74-100); HDL Cholesterol 60 mg/dl (40-60); Potassium 3.9 mmoL/L (3.5-5.1); Sodium 139 mmol/L (136-145); Triglycerides 148 mg/dl (30-150); VLDL Cholesterol 30 mg/dL (0-40)
[2021-09-22 14:19] LABS: Direct LDL Cholesterol 113.75 mg/dL (100-129)
[2021-09-22 14:22] LABS: Basophils # 0.1 K/mm3 (0-0.2); Eosinophils # 0.1 K/mm3 (0.0-0.4); Eosinophils % 0.6 % (0.1-12.0); Hematocrit 32.3 % (37.0-47.0); Hemoglobin 10.3 g/dL (12.2-16.2); Lymphocytes % 13.1 % (10-50); Mean Corpuscular HGB Conc 31.9 g/dL (31.8-35.4); Mean Corpuscular Volume 69.1 fl (81-99); Mean Platelet Volume 8.7 fl (7.4-10.4); Monocytes # 0.3 K/mm3 (0.1-1.0); Monocytes % 3.3 % (1.7-9.3); Neutrophils # 6.6 K/mm3 (1.8-7.8); Platelet Count 274 K/mm3 (142-424); Red Blood Count 4.68 M/mm3 (4.20-5.40); Red Cell Distribution Width 18.8 % (11.5-17.5)
[2021-09-22 14:25] LABS: Free T4 (Free Thyroxine) 1.49 ng/dl (0.78-2.19)
[2021-09-22 14:39] LABS: Thyroid Stimulating Hormone 0.99 uIU/mL (0.465-4.68)
[2021-09-22 14:40] LABS: Benzodiazepines Screen,Urine Negative ng/ml (<200)
[2021-09-22 14:41] LABS: Amphetamine/Metha Screen,Urine Negative ng/ml (<1000)
[2021-09-22 14:42] LABS: Barbiturates Screen,Urine Negative ng/ml (<200); Cannabinoid Screen,Urine Negative ng/ml (<50)
[2021-09-22 14:43] LABS: Cocaine Screen,Urine Negative ng/ml (<300)
[2021-09-22 14:44] LABS: Methadone Screen,Urine Negative ng/ml (<300); Opiate Screen,Urine Negative ng/ml (<300)
[2021-09-22 14:45] LABS: Phencyclidine Screen,Urine Negative ng/ml (<25)
== END ==
LOC: LAB.DROPOF 09-23 18:16
PROVIDERS: Visit Provider Emergency Medicine
DX: D64.9 Anemia, unspecified (principal); I63.9 Cerebral infarction, unspecified; M54.16 Radiculopathy, lumbar region
CPT/HCPCS: 80053; 80061; 80305; 84439; 84443; 85025

== ENCOUNTER → 2021-11-19 14:01 | Outpatient (CLI) | payer MEDICARE, SELFPAY ==
[2021-11-19 13:41] LABS: Amphetamine/Metha Screen,Urine Negative ng/ml (<1000)
[2021-11-19 13:43] LABS: Barbiturates Screen,Urine Negative ng/ml (<200)
[2021-11-19 13:44] LABS: Benzodiazepines Screen,Urine Negative ng/ml (<200); Cannabinoid Screen,Urine Negative ng/ml (<50)
[2021-11-19 13:45] LABS: Methadone Screen,Urine Negative ng/ml (<300)
[2021-11-19 13:46] LABS: Opiate Screen,Urine Positive ng/ml (<300)
[2021-11-19 13:47] LABS: Cocaine Screen,Urine Negative ng/ml (<300); Phencyclidine Screen,Urine Negative ng/ml (<25)
== END ==
PROVIDERS: PCP Emergency Medicine; Visit Provider Emergency Medicine
DX: R10.9 Unspecified abdominal pain (principal); M54.16 Radiculopathy, lumbar region
CPT/HCPCS: 80305; 87086

== ENCOUNTER → 2022-02-18 10:30 | Outpatient (CLI) | payer MEDICARE, SELFPAY ==
[2022-02-18 15:24] LABS: Amphetamine/Metha Screen,Urine Negative ng/ml (<1000)
[2022-02-18 15:25] LABS: Barbiturates Screen,Urine Negative ng/ml (<200); Benzodiazepines Screen,Urine Negative ng/ml (<200)
[2022-02-18 15:28] LABS: Cannabinoid Screen,Urine Negative ng/ml (<50); Cocaine Screen,Urine Negative ng/ml (<300)
[2022-02-18 15:29] LABS: Methadone Screen,Urine Negative ng/ml (<300)
[2022-02-18 15:30] LABS: Opiate Screen,Urine Positive ng/ml (<300); Phencyclidine Screen,Urine Negative ng/ml (<25)
== END ==
PROVIDERS: PCP Emergency Medicine; Visit Provider Emergency Medicine
DX: M54.16 Radiculopathy, lumbar region (principal)
CPT/HCPCS: 80305

== ENCOUNTER 2022-04-09 09:49 | Emergency (ER) | payer MEDICARE, SELFPAY ==
[2022-04-09] VITALS (9 sets, daily range): BP systolic 127–168; BP diastolic 65–77; PULSE 82–115; RESP 16–20; TEMP 36.9; O2SAT 96–100; BMI 17.2
--- NOTE | 2022-04-09 10:00 | ECG_ITS ---
APPROVED REPORT Exam: Resting ECG HR:103 bpm ECG Measurements Heart Rate 103 AXES ME 144 P 78 QRSd 81 QRS 79 QT 352 T 70 QTc 412 Conclusion SINUS TACHYCARDIA ABNORMAL RHYTHM ECG UNCONFIRMED REPORT Electronically signed by : Henrik Mendez MD 04/11/2022 21:13:11
--- NOTE | 2022-04-09 10:01 | PC.NURSE ---
Addendum entered by Bessy Reeder RN 04/09/22 10:31: Called pharmacy at [facility] they are closed, not open until monday. ER aware. Addendum entered by Bessy Reeder RN 04/09/22 10:26: medication list received from [facility] pt states unable to confirm names of medications on list. Pt also stating has gotten medications filled at [place] [facility] delivered to her house. Pt reports only taking Eliquis once daily not BID as prescribed on [facility]. Original Note: contacted [facility] for a medication list on pt
--- NOTE | 2022-04-09 10:13 | HMH.EDGENADL ---
Discharge Plan Disposition Patient Disposition: Home, Self-Care Condition: Fair Chief Complaint: GI Bleed Prescriptions Prescriptions: No Action metoprolol succinate 50 mg tablet extended release 24 hr 50 mg PO DAILY Qty: 90 3RF atorvastatin 80 mg tablet 80 mg PO HS aspirin [Adult Aspirin Regimen] 81 mg tablet,delayed release (DR/EC) 81 mg PO DAILY gabapentin 800 mg tablet 800 mg PO QID Qty: 120 1RF hydrocodone-acetaminophen 7.5-325 mg tablet 1 tab PO QID PRN (Reason: pain) Qty: 120 0RF umeclidinium-vilanterol 62.5-25 mcg/actuation blister with device See Rx Instructions .Route .COMPLEX Qty: 60 2RF Rx Instructions: INHALE 1 PUFF BY MOUTH ONCE DAILY amlodipine 10 mg tablet 10 mg PO DAILY Qty: 30 2RF oxybutynin chloride [Ditropan XL] 5 mg tablet extended release 24 hr 5 mg PO DAILY Qty: 30 0RF clopidogrel 75 mg tablet 75 mg PO DAILY Qty: 30 3RF nicotine [Nicoderm CQ] 21 mg/24 hr patch 24 hour 1 patch TD DAILY Qty: 14 0RF Rx Instructions: 1ST STEP albuterol sulfate 90 mcg/actuation HFA aerosol inhaler See Rx Instructions .ROUTE .COMPLEX Qty: 18 12RF Dose Instruction: 2 PUFF INHALATION EVERY 4 TO 6 HOURS NEEDED FOR SHORTNESS OF BREATH; 2 PUFFS BY MOUTH EVERY 4 TO 6 HOURS NEEDED FOR BREATHING Rx Instructions: 2 PUFF INHALATION EVERY 4 TO 6 HOURS NEEDED FOR SHORTNESS OF BREATH; 2 PUFFS BY MOUTH EVERY 4 TO 6 HOURS NEEDED FOR BREATHING esomeprazole magnesium 20 MG capsule,delayed release(DR/EC) 20 mg PO DAILY Eliquis 5 mg tablet 5 mg PO DAILY hydralazine 10 mg tablet 10 mg PO DAILY Referrals Follow up/Referrals: José Burns MD [Primary Care Provider] - See instructions Activity Restrictions/Add. Instructions Additional Instructions/Restrictions: Follow-up with appliance fixer on Monday as scheduled. Follow-up with primary care provider, call Monday to make appointment. Collect a diarrhea sample using the provided supplies and return it along with the order form to ER registration at [facility] for testing. Obtain the results of this test from your primary care provider the next day. Additional instructions for ABDOMINAL PAIN: See your physician as soon as possible for further evaluation. Return immediately if worsening abdominal pain, vomiting, shortness of breath, fever, vomiting of blood or abdominal distention. Clinical Impressions Clinical Impression: Diarrhea, Abdominal pain, Acute hypokalemia Instructions Patient Instructions: DI for Abdominal Pain-Adult, DI for Diarrhea and Traveler's Diarrhea -- Adult, Hypokalemia Discharge ED Provider: Bebeto Rogers General Adult HPI General Chief complaint: GI Bleed Stated complaint: SOA, Blood in stool Time Seen by Provider: 04/09/22 10:15 Mode of Arrival: Wheelchair Source of Information: Patient Limitations: No Limitations Description of Symptoms (Recalled from ER Triage Doc. by RN): Pt reports blood in stool, states stool is black in color and loose consistency for approx 1 week. Pt reports has been feeling SOA for 3-4 day, generalized weakness, no appetite and nausea. Pt reports had a surgery a [place] a couple months ago to close holes in the intestines to stop bleeding, pt reports lower abd pain since surgery, states pain is worse than normal at this time. Pt reports she is on eliquis and aspirin. History of Present Illness HPI narrative: History obtained from patient and . She says that she has had black diarrhea for 3 days. States she does not take iron. She has had pain in her right side for about 1 week. She is short of breath and weak for 3 to 4 days with nausea and poor appetite. She denies vomiting of blood. The patient is on Eliquis and aspirin. Medical records indicate she was on Plavix as well, she does not know whether she still takes that. States that she was in [facility] a couple of mo
[2022-04-09 10:29] LABS: Coronavirus 19, PCR Not Detected (NotDetected); Influenza A, PCR Not Detected (NotDetected); Influenza B, PCR Not Detected (NotDetected)
--- NOTE | 2022-04-09 10:30 | CT_ITS ---
PROCEDURE INFORMATION: Exam: CT Abdomen And Pelvis With Contrast Exam date and time: 04/09/2022 11:13 AM Age: 62 years old Clinical indication: Abdominal pain; Generalized; Additional info: Abdo pain, melena TECHNIQUE: Imaging protocol: Computed tomography of the abdomen and pelvis with contrast. Radiation optimization: All CT scans at this facility use at least one of these dose optimization techniques: automated exposure control; mA and/or kV adjustment per patient size (includes targeted exams where dose is matched to clinical indication); or iterative reconstruction. Contrast material: ISOVUE; Contrast volume: 75 ml; Contrast route: IV; COMPARISON: CT ABDOMEN PELVIS W CON 07/01/2019 12:26 PM FINDINGS: Liver: Normal. No mass. Gallbladder and bile ducts: Previous cholecystectomy with compensatory dilatation of the common bile duct. Pancreas: Normal. No ductal dilation. Spleen: Normal. No splenomegaly. Adrenal glands: Normal. No mass. Kidneys and ureters: Normal. No hydronephrosis. Stomach and bowel: No bowel distention or evidence of obstruction. No bowel wall thickening or adjacent inflammatory changes. Appendix: No evidence of appendicitis. Intraperitoneal space: Unremarkable. No free air. No significant fluid collection. Vasculature: Right common and external iliac arteries and stents occluded, now with new fem-fem bypass. Lymph nodes: Unremarkable. No enlarged lymph nodes. Urinary bladder: Unremarkable as visualized. Reproductive: Unremarkable as visualized. Bones/joints: Unremarkable. No acute fracture. Soft tissues: Unremarkable. IMPRESSION: 1. Right common and external iliac arteries and stents occluded, now with new fem-fem bypass. 2. No bowel distention or evidence of obstruction. No bowel wall thickening or adjacent inflammatory changes.
--- NOTE | 2022-04-09 10:30 | PC.NURSE ---
Called [facility] for most recent records
--- NOTE | 2022-04-09 10:32 | PC.NURSE ---
pt given warm blanket
[2022-04-09 10:43] LABS: Occult Blood,Stool Negative (Negative)
[2022-04-09 10:44] LABS: Chloride 105 mmol/L (98-107); Sodium 141 mmol/L (136-145)
[2022-04-09 10:45] LABS: Potassium 3.1 mmoL/L (3.5-5.1)
[2022-04-09 10:47] LABS: Alanine Aminotransferase 18 U/L (12-78); Albumin Level 4.4 g/dl (3.5-5.0); Albumin/Globulin Ratio 1.6 (1.1-1.8); Alkaline Phosphatase 108 U/L (38-126); Aspartate Amino Transferase 26 U/L (14-36); Bilirubin,Total 0.3 mg/dl (0.2-1.3); Blood Urea Nitrogen 9 mg/dl (7-17); Creatinine Clearance Estimated 36 mL/min (50-200); Estimated Glomerular Filt Rate 125 ml/min (>60); GFR (African American) 151 ML/MIN (>60); Globulin 2.8 g/dL (1.3-3.2); Total Protein,Serum 7.2 g/dl (6.3-8.2)
[2022-04-09 10:48] LABS: Anion Gap 15.1 mEq/L (5-15); Calcium 9.9 mg/dl (8.4-10.2); Carbon Dioxide 24 mmol/L (22.0-30.0); Glucose 116 mg/dl (74-100)
--- NOTE | 2022-04-09 10:49 | PC.NURSE ---
Records melina'ying from [facility]
--- NOTE | 2022-04-09 11:09 | PC.NURSE ---
pt to radiology
[2022-04-09 11:13] LABS: Basophils % 0.4 % (0.1-2.0); Eosinophils # 0.1 K/mm3 (0.0-0.4); Eosinophils % 0.7 % (0.1-12.0); Hematocrit 33.6 % (37.0-47.0); Hemoglobin 9.3 g/dL (12.2-16.2); Lymphocytes # 0.6 K/mm3 (0.7-4.5); Lymphocytes % 5.8 % (10-50); MANUAL DIFFERENTIAL MANUAL DIFFERENTIAL (MANUAL DIFF); Mean Corpuscular HGB Conc 27.6 g/dL (31.8-35.4); Mean Corpuscular Hemoglobin 20.3 pg (27.0-31.2); Mean Corpuscular Volume 73.5 fl (81-99); Mean Platelet Volume 7.4 fl (7.4-10.4); Monocytes # 0.5 K/mm3 (0.1-1.0); Monocytes % 4.7 % (1.7-9.3); Neutrophils # 8.6 K/mm3 (1.8-7.8); Neutrophils % 88.4 % (37.0-80.0); Platelet Count 327 K/mm3 (142-424); Red Blood Count 4.57 M/mm3 (4.20-5.40); Red Cell Distribution Width 17.2 % (11.5-17.5); White Blood Count 9.7 K/mm3 (4.8-10.8)
[2022-04-09 11:32] LABS: Lymphocytes % 5 % (10-50); Microcytosis 1+; Monocytes % 5 % (2-9); Neutrophils % 90 % (42-76); Platelet Estimate Normal; Total Cells Counted 100
[2022-04-09 11:33] LABS: Hypochromasia 2+
--- NOTE | 2022-04-09 11:50 | PC.NURSE ---
pt in bed, family in room
== END 2022-04-09 13:40 | disposition home or self-care (01) ==
PROVIDERS: Emergency Provider Emergency Medicine; PCP Emergency Medicine
DX: R10.9 Unspecified abdominal pain (principal); R19.7 Diarrhea, unspecified; E87.6 Hypokalemia; Z79.02 Long term (current) use of antithrombotics/antiplatelets; Z79.82 Long term (current) use of aspirin; Z79.899 Other long term (current) drug therapy; I10 Essential (primary) hypertension; K21.9 Gastro-esophageal reflux disease without esophagitis; J44.9 Chronic obstructive pulmonary disease, unspecified
CPT/HCPCS: 74177; 80053; 82272; 85007; 85025; 93005; 99285; C9803; G0328; Q9967; U0003; U0005

== ENCOUNTER → 2022-04-22 14:23 | Outpatient (CLI) | payer MEDICARE, SELFPAY ==
[2022-04-22 14:25] LABS: Benzodiazepines Screen,Urine Negative ng/ml (<200)
[2022-04-22 14:26] LABS: Amphetamine/Metha Screen,Urine Negative ng/ml (<1000)
[2022-04-22 14:27] LABS: Barbiturates Screen,Urine Negative ng/ml (<200)
[2022-04-22 14:28] LABS: Cannabinoid Screen,Urine Negative ng/ml (<50); Methadone Screen,Urine Negative ng/ml (<300)
[2022-04-22 14:29] LABS: Cocaine Screen,Urine Negative ng/ml (<300); Opiate Screen,Urine Positive ng/ml (<300)
[2022-04-22 14:30] LABS: Phencyclidine Screen,Urine Negative ng/ml (<25)
== END ==
PROVIDERS: PCP Emergency Medicine; Visit Provider Emergency Medicine
DX: M54.16 Radiculopathy, lumbar region (principal)
CPT/HCPCS: 80305

== ENCOUNTER 2022-05-23 11:39 | Emergency (ER) | payer MEDICARE, SELFPAY ==
[2022-05-23] VITALS (11 sets, daily range): BP systolic 105–196; BP diastolic 41–79; PULSE 73–80; RESP 18–20; TEMP 36.4–36.8; O2SAT 67–100; BMI 15.6
[2022-05-23 13:08] LABS: Chloride 106 mmol/L (98-107)
[2022-05-23 13:09] LABS: Potassium 3.9 mmoL/L (3.5-5.1); Sodium 141 mmol/L (136-145)
[2022-05-23 13:11] LABS: Alanine Aminotransferase 16 U/L (12-78); Aspartate Amino Transferase 29 U/L (14-36); Blood Urea Nitrogen 13 mg/dl (7-17); Creatinine Clearance Estimated 33 mL/min (50-200); Estimated Glomerular Filt Rate 125 ml/min (>60); GFR (African American) 151 ML/MIN (>60)
[2022-05-23 13:12] LABS: Albumin Level 4.1 g/dl (3.5-5.0); Albumin/Globulin Ratio 1.5 (1.1-1.8); Alkaline Phosphatase 118 U/L (38-126); Anion Gap 14.9 mEq/L (5-15); Basophils # 0.1 K/mm3 (0-0.2); Basophils % 0.4 % (0.1-2.0); Bilirubin,Total 0.4 mg/dl (0.2-1.3); Calcium 9.3 mg/dl (8.4-10.2); Carbon Dioxide 24 mmol/L (22.0-30.0); Eosinophils % 0.1 % (0.1-12.0); Globulin 2.7 g/dL (1.3-3.2); Glucose 127 mg/dl (74-100); Hematocrit 31.8 % (37.0-47.0); Hemoglobin 9.9 g/dL (12.2-16.2); Lymphocytes # 0.7 K/mm3 (0.7-4.5); Lymphocytes % 5.1 % (10-50); Mean Corpuscular Hemoglobin 20.2 pg (27.0-31.2); Mean Corpuscular Volume 65.3 fl (81-99); Mean Platelet Volume 8.5 fl (7.4-10.4); Monocytes # 0.4 K/mm3 (0.1-1.0); Monocytes % 2.8 % (1.7-9.3); Neutrophils # 12.4 K/mm3 (1.8-7.8); Neutrophils % 91.7 % (37.0-80.0); Platelet Count 330 K/mm3 (142-424); Red Blood Count 4.88 M/mm3 (4.20-5.40); Red Cell Distribution Width 18.9 % (11.5-17.5); Total Protein,Serum 6.8 g/dl (6.3-8.2); White Blood Count 13.5 K/mm3 (4.8-10.8)
[2022-05-23 13:13] LABS: MANUAL DIFFERENTIAL MANUAL DIFFERENTIAL (MANUAL DIFF)
[2022-05-23 13:24] LABS: Lipase 40 U/L (23-300)
[2022-05-23 13:27] LABS: Hypochromasia 2+; Lymphocytes % 5 % (10-50); Monocytes % 4 % (2-9); Neutrophils % 91 % (42-76); Total Cells Counted 100
[2022-05-23 13:28] LABS: Microcytosis 2+; Platelet Estimate Normal
--- NOTE | 2022-05-23 13:44 | PC.NURSE ---
DR. OLIVEIRA AT BEDSIDE
--- NOTE | 2022-05-23 13:48 | CT_ITS ---
FINAL REPORT TECHNIQUE: Pre-and postcontrast images of the abdomen were performed by computed tomography. Extensive 3-D reconstruction images were performed. A CTA was performed. This study was performed with techniques to keep radiation doses as low as reasonably achievable (ALARA). Individualized dose reduction techniques using automated exposure control or adjustment of mA and/or kV according to the patient's size were employed. CLINICAL HISTORY: LLQ pain COMPARISON: 04/09/2022 FINDINGS: CTA ABDOMEN/PELVIS There are mild changes of emphysema in the lung bases. There is mild atelectasis or scarring. Precontrast images demonstrate no evidence of nephrolithiasis. There are small bilateral renal cysts. No adrenal masses are identified. The liver, spleen and pancreas are unremarkable. There is mild biliary ductal dilatation. There is an aorto left femoral graft which is patent. There is a femoral-femoral graft which is patent. There is occlusion of the right common and external iliac arteries which are stable. CTA: The abdominal aorta is proper caliber. There is no dissection. The celiac axis is patent. The superior mesenteric artery is occluded proximally. The inferior mesenteric artery is occluded. There is no significant stenosis or calcification. There is plaque at the bilateral renal artery origins without stenosis. There is poor contrast enhancement of the right superficial several artery and it may be occluded. IMPRESSION: Patent aorto left femoral and femoral-femoral graft. 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 Reviewed, Interpreted and Dictated by Hever Marvin III, MD Transcribed by Ximena Jacobs Authenticated and [facility]
--- NOTE | 2022-05-23 13:52 | PC.NURSE ---
PT PLACED ON BED PAIN FOR URINE SPECIMEN
--- NOTE | 2022-05-23 13:55 | PC.NURSE ---
UA SENT TO LAB
[2022-05-23 13:59] LABS: Microscopic, Urine URINE MICROSCOPIC (MICROSCOPIC)
[2022-05-23 14:00] LABS: Appearance,Urine SL CLOUDY (Clear); Blood, Urine Negative (Negative); Color,Urine YELLOW (Yellow); Glucose,Urine (UA) Negative (Negative); Ketones,Urine TRACE (Negative); Leukocyte Esterase,Urine Negative (Negative); Nitrate,Urine Negative (Negative); PH,Urine 5.5 (5.0-8.5); Protein,Urine 2+ (Negative); Specific Gravity, Urine >= 1.030 (1.005-1.030)
[2022-05-23 14:02] LABS: Bilirubin,Urine 2+ (Negative)
--- NOTE | 2022-05-23 14:16 | PC.NURSE ---
PT RETURNED FROM CT
[2022-05-23 14:20] LABS: Bacteria,Urine Trace /lpf; RBC,Urine Occasional #/hpf (0-3)
--- NOTE | 2022-05-23 15:59 | HMH.EDGENADL ---
Discharge Plan Disposition Patient Disposition: Left Against Medical Advice Condition: Fair Chief Complaint: Abdominal Pain Prescriptions Prescriptions: No Action metoprolol succinate 50 mg tablet extended release 24 hr 50 mg PO DAILY Qty: 90 3RF atorvastatin 80 mg tablet 80 mg PO HS aspirin [Adult Aspirin Regimen] 81 mg tablet,delayed release (DR/EC) 81 mg PO DAILY umeclidinium-vilanterol 62.5-25 mcg/actuation blister with device See Rx Instructions .Route .COMPLEX Qty: 60 2RF Rx Instructions: INHALE 1 PUFF BY MOUTH ONCE DAILY amlodipine 10 mg tablet 10 mg PO DAILY Qty: 30 2RF oxybutynin chloride [Ditropan XL] 5 mg tablet extended release 24 hr 5 mg PO DAILY Qty: 30 0RF gabapentin 800 mg tablet 800 mg PO QID Qty: 120 1RF hydrocodone-acetaminophen 7.5-325 mg tablet 1 tab PO QID PRN (Reason: pain) Qty: 120 0RF clopidogrel 75 mg tablet 75 mg PO DAILY Qty: 30 3RF nicotine [Nicoderm CQ] 21 mg/24 hr patch 24 hour 1 patch TD DAILY Qty: 14 0RF Rx Instructions: 1ST STEP albuterol sulfate 90 mcg/actuation HFA aerosol inhaler See Rx Instructions .ROUTE .COMPLEX Qty: 18 12RF Dose Instruction: 2 PUFF INHALATION EVERY 4 TO 6 HOURS NEEDED FOR SHORTNESS OF BREATH; 2 PUFFS BY MOUTH EVERY 4 TO 6 HOURS NEEDED FOR BREATHING Rx Instructions: 2 PUFF INHALATION EVERY 4 TO 6 HOURS NEEDED FOR SHORTNESS OF BREATH; 2 PUFFS BY MOUTH EVERY 4 TO 6 HOURS NEEDED FOR BREATHING esomeprazole magnesium 20 MG capsule,delayed release(DR/EC) 20 mg PO DAILY Eliquis 5 mg tablet 5 mg PO DAILY hydralazine 10 mg tablet 10 mg PO DAILY Referrals Follow up/Referrals: José Mendez MD [Primary Care Provider] - See instructions Activity Restrictions/Add. Instructions Additional Instructions/Restrictions: Return to ER for worsening. Follow-up with surgeon as soon as possible. Clinical Impressions Clinical Impression: Occlusion of superior mesenteric artery, Occlusion of celiac artery Instructions Patient Instructions: DI for Acute Abdominal Pain Discharge ED Provider: Jimi Capps Adult [facility] General Chief complaint: Abdominal Pain Stated complaint: diarrhea,nausea,weakness Time Seen by Provider: 05/23/22 12:14 Mode of Arrival: Wheelchair Source of Information: Patient Limitations: No Limitations Description of Symptoms (Recalled from ER Triage Doc. by RN): PT SENT FROM DR. MENDEZ'S OFFICE FOR FURTHER EVALUATION OF ABDOMINAL PAIN. PT STATES SHE HAS HAD ABDOMINAL PAIN SINCE DECEMBER WHEN SHE HAD PROCEDURE FOR BLEEDING IN HER STOMACH REPORTS NAUSEA, NO EMESIS History of Present Illness HPI narrative: 62yo F sent to the emergency department from Dr. Mendez's office for further evaluation of abdominal pain. Reports she has had abdominal pain for several months but it is now significantly worse after a procedure secondary to bleeding in her stomach. Patient is uncertain what exactly was completed. She denies any blood per rectum. Her pain is left lower quadrant. Patient has a history of GI bleed, vascular surgery, hyperlipidemia, hypertension, COPD, CVA. Denies fever, nausea/vomit/diarrhea. Family member at bedside augments history Related Data Home Medications Medication Instructions Recorded Confirmed esomeprazole magnesium 20 mg 20 mg PO DAILY ACID REFLUX 12/30/20 05/23/22 capsule,delayed release aspirin 81 mg tablet,delayed 81 mg PO DAILY Heart 02/24/21 05/23/22 release (Adult Aspirin Regimen) atorvastatin 80 mg tablet 80 mg PO HS chl 02/24/21 05/23/22 apixaban 5 mg tablet (Eliquis) 5 mg PO DAILY blood thinner 04/09/22 05/23/22 hydralazine 10 mg tablet 10 mg PO DAILY Hypertension 04/09/22 05/23/22 Previous Rx's Medication Instructions Recorded metoprolol succinate 50 mg 50 mg PO DAILY High blood pressure 11/02/20 tablet,extended release 24 hr #90 tabs amlodipine 10 mg tablet 10 mg PO DAILY pressure
--- NOTE | 2022-05-23 16:20 | PC.NURSE ---
called rad for films to be powershared
--- NOTE | 2022-05-23 16:23 | PC.NURSE ---
placed call to [facility] for transfer, they advised no bed availability, have a waiting list and will not have a bed today for sure.
--- NOTE | 2022-05-23 16:24 | PC.NURSE ---
placed call to [facility] for transfer, they have calls ahead of us they will call back
--- NOTE | 2022-05-23 16:47 | PC.NURSE ---
Dr Capps speaking with [facility]
--- NOTE | 2022-05-23 17:11 | PC.NURSE ---
Dr Capps speaking with [facility]
--- NOTE | 2022-05-23 17:29 | PC.NURSE ---
DR OLIVEIRA AT BEDSIDE TO UPDATE PT AND FAMILY ON POC
== END 2022-05-23 17:50 | disposition left against medical advice (07) ==
PROVIDERS: Emergency Provider Family Medicine; PCP Emergency Medicine
DX: K55.1 Chronic vascular disorders of intestine (principal); I77.4 Celiac artery compression syndrome; I10 Essential (primary) hypertension; E78.5 Hyperlipidemia, unspecified; J44.9 Chronic obstructive pulmonary disease, unspecified; Z86.73 Personal history of transient ischemic attack (TIA), and cerebral infarction without residual deficits; Z87.19 Personal history of other diseases of the digestive system
CPT/HCPCS: 74174; 80053; 81001; 83690; 85007; 85025; 96360; 99291; G0390; Q9967